=== PATIENT | male | born 1930 | race Caucasian/White ===

== ENCOUNTER → 2016-05-24 | Outpatient (CLI) | payer MEDICARE | END | disposition home or self-care (01) | LOC: LAB.NP 10:20 | PROVIDERS: ATTEND Family Medicine | DX: I10 Essential (primary) hypertension (principal); I25.10 Atherosclerotic heart disease of native coronary artery without angina pectoris; E78.5 Hyperlipidemia, unspecified ==

== ENCOUNTER 2016-07-06 12:39 | Observation (INO) | payer MEDICARE ==
[2016-07-06] MEDS ORDERED: SODIUM CHLORIDE 0.9% 1000ML 1,000 ML IVS ONE (13:02)
--- NOTE | 2016-07-06 13:10 | ED.PDOC ---
History of Present Illness - General Chief Complaint: General Stated Complaint: weakness Time Seen by Provider: 07/06/16 12:50 Source: patient, RN notes reviewed, Vital Signs reviewed Exam Limitations: no limitations - History of Present Illness Initial Comments: Patient comes in with complaints of weakness. Reports while he was working, helping rebuild a house, he suddenly felt weak in his arms. While he denies chest pain, pressure or tightness he does say he felt strange across his whole upper chest and into his arms. + lightheadedness. No CONNORS, Diaphoresis, Visual changes, SOB, Nausea, Abd. pain or lower extremity weakness. Timing/Duration: 1/2 hour Severity: mild Improving Factors: nothing Worsening Factors: nothing Associated Symptoms: weakness Allergies/Adverse Reactions: Allergies NO KNOWN ALLERGY Allergy (Verified 07/27/15 11:13) Home Medications: Ambulatory Orders Simvastatin 20 mg PO HS #0 02/06/13 Tamsulosin [Flomax] 0.4 mg PO DAILY #0 02/06/13 Metoprolol Succinate [Toprol Xl] 100 mg PO DAILY 01/03/15 Nitroglycerin [Nitrostat] 0.4 mg SL Q5M PRN 07/27/15 Omeprazole 20 mg PO DAILY 07/27/15 Warfarin Sodium 2.5 mg PO DAILY 07/27/15 Amlodipine Besylate [Norvasc] 2.5 mg PO BEDTIME 08/31/15 Isosorbide Mononitrate [Imdur] 30 mg PO DAILY 08/31/15 Mometasone Furoate (Nasal) [Nasonex] 50 mcg NA DAILY 08/31/15 Multiple Vitamins W/ Minerals [Multivitamin Adults] 1 tab PO DAILY 08/31/15 Aspirin [Aspirin Adult Low Dose] 81 mg PO DAILY 09/02/15 Review of Systems - Review of Systems Constitutional: States: weakness. Denies: chills, diaphoresis, fever, malaise EENTM: States: no symptoms reported Respiratory: States: no symptoms reported. Denies: cough, short of breath Cardiology: States: see HPI. Denies: chest pain, palpitations, syncope Gastrointestinal/Abdominal: States: no symptoms reported. Denies: abdominal pain, nausea, vomiting Genitourinary: States: no symptoms reported Musculoskeletal: States: no symptoms reported Skin: States: no symptoms reported Neurological: States: see HPI, weakness - Bilateral arms. 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) Hx of HIV: No Hx Hepatitis C: No Hx MRSA: No Surgical History: other - Vaccination History Hx Tetanus, Diphtheria Vaccination: No Hx Influenza Vaccination: Yes Hx Pneumococcal Vaccination: Yes - Social History Hx Tobacco Use: No Hx Alcohol Use: No Hx Substance Use: No Hx Substance Use Treatment: No Hx Depression: No Hx Physical Abuse: No Hx Emotional Abuse: No Hx Suspected Abuse: No - Female History Patient : No Family Medical History - Family History Mother Family History: Unknown Living Status: Cause of : stroke Hx Family Asthma: No Hx Family Congestive Heart Failure: No Hx Family Hypertension: No Hx Family Stroke: Yes Hx Cardiac Disease: No Hx Family Diabetes: No Hx Family Cancer: No Physical Exam - Physical Exam General Appearance: Alert, Comfortable, No apparent distress, Well Developed, Well Groomed, Well Hydrated, Well Nourished Eye Exam: bilateral normal Ears, Nose, Throat: hearing grossly normal, normal ENT inspection Neck: non-tender, full range of motion, supple, normal inspection Respiratory: chest non-tender, lungs clear, normal breath sounds, no respiratory distress, no accessory muscle use Cardiovascular/Chest: normal peripheral pulses, regular rate, rhythm, no edema, no gallop, no JVD, no murmur Peripheral Pulses: posterior tibialis,right: 2+, posterior tibialis,left: 2+ Gastrointestinal/Abdominal: normal bowel sounds, non tender, soft, no organomegaly, no pulsatile mass Extremity: normal range of motion, non-tender, normal inspection, no pedal edema , no calf tenderness Neurologic: vice president of academic affairs II-XII nml as tested, no motor/sensory deficits, alert, normal mood/affect, oriented x 3 Skin Exam: normal color, warm/dry Lymphatic: no adenopathy Comments: Vital Signs - 24 hr 07/06/16 07/06/16 07/06/16 12:45 13:20 14:05 Temperature 96.0 F L Pulse Rate [ 65 65 63 LEFT ARM] Respiratory 16 16 16 Rate Blood Pressure 135/68 114/79 112/69 [left brachial] O2 Sat by Pulse 94 L 96 97 Oximetry 07/06/16 07/06/16 14:50 15:42 Temperature Pulse Rate [ 80 68 LEFT ARM] Respiratory 16 16 Rate Blood Pressure 130/72 119/72 [left brachial] O2 Sat by Pulse 96 95 Oximetry Progress - Progress Progress: 07/06/16 16:20 CK-MB elevated X2 with normal troponin. Will admit for cardiac rule out. Discussed with patient and with Darrin hospitalist. - Results/Orders Results/Orders: Laboratory Tests 07/06/16 07/06/16 13:10 15:19 WBC 5.3 RBC 4.45 L Hgb 14.3 Hct 43.3 MCV 97.3 H MCH 32.1 H MCHC 33.0 RDW 14.3 Plt Count 98 L MPV 8.1 Absolute Neuts (auto) 3.30 Absolute Lymphs (auto) 1.40 Absolute Monos (auto) 0.50 Absolute Eos (auto) 0.10 Absolute Basos (auto) 0.00 Neutrophils % 61.1 Lymphocytes % 26.2 Monocytes % 10.0 H Eosinophils % 1.9 Basophils % 0.8 PT 20.5 H* INR 1.820 PTT (SP) 38.2 H D-Dimer, Quantitative < 200 Sodium 137 Potassium 3.7 Chloride 105 Carbon Dioxide 27 Anion Gap 8.7 L BUN 23 H Creatinine 1.30 BUN/Creatinine Ratio 17.7 Random Glucose 81 Serum Osmolality 276.5 Calcium 10.0 Total Bilirubin 1.4 H AST 41 ALT 22 Alkaline Phosphatase 46 Creatine Kinase 175 H 169 CK-MB (CK-2) 8.0 H* 7.6 H* CK-MB (CK-2) % 4.57 H 4.50 H Troponin I < 0.02 < 0.02 Serum Total Protein 6.2 L Albumin 3.6 Globulin 2.6 Albumin/Globulin Ratio 1.4 - EKG/XRAY/CT EKG: nonspecific ST T wave Chg, Changed from - 08/08/15 - Leads V5-6 QRS waves are changed Comments: Electronic ventricular pacemaker @ 61 bpm XRAY: chest - normal Departure - Departure Clinical Impression: Atypical chest pain, Weakness, Elevated CK-MB level, Abnormal EKG Time of Disposition: 16:20 Disposition: Admit Patient Condition: Fair Departure Forms: ED Discharge - Pt. Copy, Patient Portal Self Enrollment Home Medications: Ambulatory Orders Simvastatin 20 mg PO HS #0 02/06/13 Tamsulosin [Flomax] 0.4 mg PO DAILY #0 02/06/13 Metoprolol Succinate [Toprol Xl] 100 mg PO DAILY 01/03/15 Nitroglycerin [Nitrostat] 0.4 mg SL Q5M PRN 07/27/15 Omeprazole 20 mg PO DAILY 07/27/15 Warfarin Sodium 2.5 mg PO DAILY 07/27/15 Amlodipine Besylate [Norvasc] 2.5 mg PO BEDTIME 08/31/15 Isosorbide Mononitrate [Imdur] 30 mg PO DAILY 08/31/15 Mometasone Furoate (Nasal) [Nasonex] 50 mcg NA DAILY 08/31/15 Multiple Vitamins W/ Minerals [Multivitamin Adults] 1 tab PO DAILY 08/31/15 Aspirin [Aspirin Adult Low Dose] 81 mg PO DAILY 09/02/15 Decision To Admit - Decistion To Admit Decision to Admit Reason: Admit from ER - Elevated CK-MB - cardiac rule out
--- NOTE | 2016-07-06 14:04 | RAD ---
EXAM DESCRIPTION: Chest,1 View CLINICAL HISTORY: 86 years Male, weakness/chest discomfort COMPARISON: August 08, 2015 TECHNIQUE: AP portable chest. FINDINGS: The lungs are clear. There is no infiltrate or effusion. The heart is normal size. Bipolar pacer in place unchanged. IMPRESSION: Normal. Electronically signed by: Kirit Rdz MD 07/06/2016 2:03 PM CDT
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
[2016-07-06] MEDS ORDERED: SODIUM CHLORIDE 0.9% (FLUSH) 10 ML SYG IV PRN (17:34)
[2016-07-06] MEDS ORDERED: ACETAMINOPHEN 325 MG TAB PO PRN (17:34)
[2016-07-06] MEDS ORDERED: MORPHINE SULFATE INJ 10 MG/ML VIAL IV PRN (17:34)
[2016-07-06] MEDS ORDERED: NITROGLYCERIN 0.4 MG 25 EA TAB SL PRN (17:34)
[2016-07-06] MEDS ORDERED: IV SET AND CAP CHANGE INJ INJ SCH (18:00)
--- NOTE | 2016-07-06 19:38 | PCM.CORE ---
Physician DVT/VTE - Nurse DVT Assessment & Total Each Risk Factor Represents 3 Points: Age over 75 years, Medical PT with Hx of PA, CHF, Severe infection/sepsis DVT Assessment Score: 6 - 5 or more Very High Risk Treatments: Early Ambulation *, Sequential Compression Device Pharmacological: Enoxaparin 40mg SQ Daily
[2016-07-06] MEDS ORDERED: traMADol HCL 50 MG TAB PO PRN (20:57)
[2016-07-06] MEDS ORDERED: TAMSULOSIN 0.4 MG CAP PO SCH (21:00)
[2016-07-06] MEDS ORDERED: NON-FORMULARY MEDICATION 1 EA MIS (Amlodipine Besylate [Norvasc] 2.5 MG) PO SCH (21:00)
[2016-07-06] MEDS ORDERED: OMEPRAZOLE CAP 20 MG CAP PO SCH (21:00)
[2016-07-06] MEDS ORDERED: WARFARIN SODIUM 2 MG TAB PO SCH (21:00)
[2016-07-06] MEDS ORDERED: SIMVASTATIN 20 MG TAB PO SCH (21:00)
[2016-07-06] MEDS ORDERED: amLODIPine BESYLATE 5 MG TAB ONE (21:20)
[2016-07-06] MEDS ORDERED: WARFARIN SODIUM 2.5 MG TAB ONE (21:20)
[2016-07-06] MEDS: SODIUM CHLORIDE 0.9% (FLUSH) 10 ML SYG IV SCH (21:23)
[2016-07-06] MEDS: KCL 30MEQ/D5 1/2NS 1,000 ML IVS PRN (21:23)
[2016-07-07] MEDS: KCL 30MEQ/D5 1/2NS 1,000 ML IVS PRN (06:08)
[2016-07-07] MEDS ORDERED: MELOXICAM 7.5 MG TAB ONE (07:10)
[2016-07-07] MEDS ORDERED: METOPROLOL SUCCINATE XL 50 MG TAB ONE (07:10)
[2016-07-07] MEDS ORDERED: CELECOXIB 100 MG CAP ONE (07:10)
[2016-07-07] MEDS ORDERED: amLODIPine BESYLATE 5 MG TAB ONE (07:11)
[2016-07-07] MEDS ORDERED: ISOSORBIDE MONONITRATE (IMDUR) 30 MG TAB ONE (07:11)
[2016-07-07] MEDS ORDERED: MELOXICAM 7.5 MG TAB PO SCH (09:00)
[2016-07-07] MEDS ORDERED: METOPROLOL SUCCINATE XL 50 MG TAB PO SCH (09:00)
[2016-07-07] MEDS ORDERED: ISOSORBIDE MONONITRATE (IMDUR) 30 MG TAB PO SCH (09:00)
[2016-07-07] MEDS ORDERED: CELECOXIB 100 MG CAP PO SCH (09:00)
[2016-07-07] MEDS ORDERED: ASPIRIN EC 81 MG TAB PO SCH (09:00)
[2016-07-07] MEDS: SODIUM CHLORIDE 0.9% (FLUSH) 10 ML SYG IV SCH (09:30)
[2016-07-07 10:29] VITALS: BP 115/74; TEMP 98.5; O2SAT 95
[2016-07-07] MEDS ORDERED: TETANUS,DIPHTHERIA,PERTUSSIS 1 EA SYG IM ONE (13:05)
[2016-07-07] MEDS ORDERED: amLODIPine BESYLATE 5 MG TAB PO SCH (21:00)
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
== END 2016-07-07 13:45 | disposition home health service (06) ==
LOC: ER 12:39 → MS 17:29
PROVIDERS: ADMIT Nurse Practitioner Family; ATTEND Nurse Practitioner Family
DX: R07.89 Other chest pain (principal); M62.81 Muscle weakness (generalized); E86.0 Dehydration; I48.91 Unspecified atrial fibrillation; I25.10 Atherosclerotic heart disease of native coronary artery without angina pectoris; D69.6 Thrombocytopenia, unspecified; R42 Dizziness and giddiness; R94.31 Abnormal electrocardiogram [ECG] [EKG]; I25.2 Old myocardial infarction; E78.00 Pure hypercholesterolemia, unspecified; Z95.0 Presence of cardiac pacemaker; Z95.5 Presence of coronary angioplasty implant and graft; Z23 Encounter for immunization; Z79.01 Long term (current) use of anticoagulants; Z79.82 Long term (current) use of aspirin; Z79.899 Other long term (current) drug therapy; Z87.19 Personal history of other diseases of the digestive system; Z87.442 Personal history of urinary calculi; Z85.828 Personal history of other malignant neoplasm of skin; Z87.891 Personal history of nicotine dependence; Z82.3 Family history of stroke
CPT/HCPCS: 36415 ×3; 71010; 80048; 80053; 80061; 81001; 82550 ×3; 82553 ×3; 84484 ×3; 85025 ×2; 85379; 85610; 85730; 87086; 87088; 87186; 93005 ×2; 94760 ×3; 96360; 99284; G0008; G0378; J7030

== ENCOUNTER → 2016-09-20 | Outpatient (CLI) | payer MEDICARE | END | disposition home or self-care (01) | LOC: YCHH 09:08 | PROVIDERS: ATTEND Family Medicine | DX: N39.0 Urinary tract infection, site not specified (principal); N40.1 Benign prostatic hyperplasia with lower urinary tract symptoms ==

== ENCOUNTER 2016-10-14 08:14 | Emergency (ER) | payer MEDICARE ==
[2016-10-14 08:19] VITALS: TEMP 98.2
[2016-10-14] MEDS ORDERED: ASPIRIN (CHEWABLE) 81 MG TAB PO ONE (08:30)
--- NOTE | 2016-10-14 08:43 | ED.PDOC ---
History of Present Illness - General Chief Complaint: Chest Pain/CA Stated Complaint: Episodic Chest Discomfort Time Seen by Provider: 10/14/16 08:31 Source: patient Exam Limitations: no limitations - History of Present Illness Initial Comments: Patient presents with one week history of intermittent chest pain. Pain is like a "thump" and occurs just to the left of the sternum. It only lasts a few seconds. It is not associated with other symptoms and does not worsen with exertion. He has had these before but has just noticed them increasing this week. He takes nitroglycerin when they occur. Has history of a "heart attack" . He is not sure exactly when his prior MIs were but he does remember getting a pacemaker in the s. Stopped smoking 51 years ago. No history of diabetes. No bipedal edema. No other complaints. Timing/Duration: momentarily, intermittent Severity: mild Improving Factors: nothing Worsening Factors: nothing Associated Symptoms: denies symptoms Allergies/Adverse Reactions: Allergies NO KNOWN ALLERGY Allergy (Verified 10/14/16 08:25) Home Medications: Ambulatory Orders Nitroglycerin [Nitrostat] 0.4 mg SL [id number] PRN 07/27/15 Omeprazole 20 mg PO BEDTIME 07/27/15 Warfarin Sodium 2.5 mg PO BEDTIME 07/27/15 Amlodipine Besylate [Norvasc] 2.5 mg PO BEDTIME 08/31/15 Isosorbide Mononitrate [Imdur] 30 mg PO DAILY 08/31/15 Aspirin [Aspirin EC] 81 mg PO DAILY 07/06/16 Celecoxib 200 mg PO DAILY 07/06/16 Meloxicam 15 mg PO DAILY 07/06/16 Metoprolol Succinate [Metoprolol Succinate ER] 50 mg PO DAILY 07/06/16 Simvastatin 20 mg PO BEDTIME 07/06/16 Tamsulosin [Flomax] 0.4 mg PO BEDTIME 07/06/16 Tramadol HCl 50 mg PO Q4H PRN 07/06/16 Mupirocin 2 % Oint [Bactroban Oint] 15 gm TOP QID #1 tube 07/07/16 Nitroglycerin 0.4 mg Tab [Nitrostat] 1 ea SL Q5MIN PRN #1 bttl 07/07/16 Sulfamethoxazole-Trimethoprim [Bactrim Ds 800-160 mg] 1 tab PO BID #20 tab 07/07 Amoxicillin 875 mg PO BID #20 tab 07/10/16 Review of Systems - Review of Systems Constitutional: States: no symptoms reported EENTM: States: no symptoms reported Respiratory: States: no symptoms reported Cardiology: States: see HPI Gastrointestinal/Abdominal: States: no symptoms reported Genitourinary: States: no symptoms reported Musculoskeletal: States: no symptoms reported Skin: States: no symptoms reported Neurological: States: no symptoms reported Endocrine: States: no symptoms reported Hematologic/Lymphatic: States: no symptoms reported Past Medical History (General) - Patient Medical History Hx Seizures: No Hx Stroke: No Hx Dementia: No Hx Asthma: No Hx of COPD: No Hx Cardiac Disorders: Yes - CA's, Atrial Fib Hx Congestive Heart Failure: No Hx Pacemaker: Yes Hx Hypertension: Yes Hx Thyroid Disease: No Hx Diabetes: No Hx Gastroesophageal Reflux: No Hx Renal Disease: - Hx kidney stones 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) Hx of HIV: No Hx Hepatitis C: No Hx MRSA: No Surgical History: colectomy, pacemaker - Vaccination History Hx Tetanus, Diphtheria Vaccination: No Hx Influenza Vaccination: Yes - 2016 Hx Pneumococcal Vaccination: Yes - Social History Hx Tobacco Use: Yes - Quit 1966 Hx Alcohol Use: No Hx Substance Use: No Hx Substance Use Treatment: No Hx Depression: No Hx Physical Abuse: No Hx Emotional Abuse: No Hx Suspected Abuse: No - Female History Patient : No Family Medical History - Family History Mother Family History: Unknown Living Status: Cause of : stroke Hx Family Asthma: No Hx Family Congestive Heart Failure: No Hx Family Hypertension: No Hx Family Stroke: Yes Hx Cardiac Disease: No Hx Family Diabetes: No Hx Family Cancer: No Physical Exam - Physical Exam General Appearance: Alert Respiratory: lungs clear Cardiovascular/Chest: normal peripheral pulses, regular rate, rhythm Gastrointestinal/Abdominal: normal bowel sounds, non tender, soft Extremity: normal inspection, no pedal edema Skin Exam: normal color Progress - Progress Progress: 10/14/16 08:44 EKG read by me showed electronic ventricular pacemaker. No ST cahnges nor T wave inversions. No LBBB. Patient received ASA 324 mg po x one. 10/14/16 09:50 Troponin negative. Patient continued to have intermittent pain. Was transferred to [facility] for unstable angina. Laboratory Tests 10/14/16 10/14/16 10/14/16 08:51 08:51 08:51 WBC 5.4 RBC 4.97 Hgb 16.0 Hct 48.5 MCV 97.7 H MCH 32.2 H MCHC 32.9 L RDW 13.5 Plt Count 109 L MPV 8.7 Absolute Neuts (auto) 3.30 Absolute Lymphs (auto) 1.40 Absolute Monos (auto) 0.50 Absolute Eos (auto) 0.10 Absolute Basos (auto) 0.00 Neutrophils % 61.2 Lymphocytes % 25.9 Monocytes % 9.5 H Eosinophils % 2.6 Basophils % 0.8 PT 20.8 H* INR 1.850 PTT (SP) 38.5 H Sodium 139 Potassium 4.5 Chloride 105 Carbon Dioxide 26 Anion Gap 12.5 BUN 17 Creatinine 1.23 BUN/Creatinine Ratio 13.8 Random Glucose 142 H Serum Osmolality 281.5 Calcium 10.4 H Total Bilirubin 1.6 H AST 33 ALT 18 Alkaline Phosphatase 47 Creatine Kinase 77 CK-MB (CK-2) 3.2 CK-MB (CK-2) % Not Reportable Troponin I < 0.02 B-Natriuretic Peptide 88.7 Serum Total Protein 7.1 Albumin 4.1 Globulin 3.0 Albumin/Globulin Ratio 1.4 Departure - Departure Clinical Impression: Unstable angina Disposition: Transfer to Hospital Condition: Good Departure Forms: ED Discharge - Pt. Copy, Patient Portal Self Enrollment Diet: other - NPO Referrals: Krzysztof Burns MD [Primary Care Provider] - 1-2 Weeks Home Medications: Ambulatory Orders Nitroglycerin [Nitrostat] 0.4 mg SL [id number] PRN 07/27/15 Omeprazole 20 mg PO BEDTIME 07/27/15 Warfarin Sodium 2.5 mg PO BEDTIME 07/27/15 Amlodipine Besylate [Norvasc] 2.5 mg PO BEDTIME 08/31/15 Isosorbide Mononitrate [Imdur] 30 mg PO DAILY 08/31/15 Aspirin [Aspirin EC] 81 mg PO DAILY 07/06/16 Celecoxib 200 mg PO DAILY 07/06/16 Meloxicam 15 mg PO DAILY 07/06/16 Metoprolol Succinate [Metoprolol Succinate ER] 50 mg PO DAILY 07/06/16 Simvastatin 20 mg PO BEDTIME 07/06/16 Tamsulosin [Flomax] 0.4 mg PO BEDTIME 03/30/17 Tramadol HCl 50 mg PO Q4H PRN 07/06/16 Mupirocin 2 % Oint [Bactroban Oint] 15 gm TOP QID #1 tube 07/07/16 Nitroglycerin 0.4 mg Tab [Nitrostat] 1 ea SL Q5MIN PRN #1 bttl 07/07/16 Sulfamethoxazole-Trimethoprim [Bactrim Ds 800-160 mg] 1 tab PO BID #20 tab 07/07 Amoxicillin 875 mg PO BID #20 tab 07/10/16
--- NOTE | 2016-10-14 08:53 | RAD ---
PROCEDURE: XR CHEST 1 VIEW HISTORY: chest pain COMPARISON: 07/06/2016 TECHNIQUE: Single projection of the chest was done. FINDINGS: There is dual-chamber left-sided pacemaker . There are no discrete airspace infiltrates, pneumothoraces or pleural effusions. The pulmonary vascularity is normal. The cardiomediastinal silhouette is unremarkable. IMPRESSION: There is no acute pleural-parenchymal process seen in the imaged lung paige. Location of Interpretation: [facility] Electronically signed by: Handy Bell MD 10/14/2016 8:52 AM CDT Workstation: [id number]
[2016-10-14 10:07] VITALS: BP 125/74; O2SAT 97
== END 2016-10-14 10:28 | disposition short-term general hospital (02) ==
LOC: ER 08:14
DX: I20.0 Unstable angina (principal); I25.2 Old myocardial infarction; Z95.0 Presence of cardiac pacemaker; I48.91 Unspecified atrial fibrillation; I10 Essential (primary) hypertension; Z79.82 Long term (current) use of aspirin; Z79.899 Other long term (current) drug therapy; Z85.828 Personal history of other malignant neoplasm of skin; Z87.891 Personal history of nicotine dependence

== ENCOUNTER → 2016-10-16 | Outpatient (CLI) | payer MEDICARE ==
--- NOTE | 2016-10-16 09:18 | US ---
EXAM DESCRIPTION: Renal CLINICAL HISTORY: 86 years, Male, CYST COMPARISON: CT scan January 2016 FINDINGS: Right kidney 9.6 cm. Left kidney 10.1 cm. 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 IMPRESSION: Septated upper pole left renal cyst probably unchanged compared to last year's CT scan alignment for difference in technique. Remainder evaluation kidneys unremarkable Electronically signed by: Juan J Haddad MD 10/16/2016 9:17 AM CDT
== END | disposition home or self-care (01) ==
LOC: US 08:02
PROVIDERS: ATTEND Urology
DX: N28.1 Cyst of kidney, acquired (principal)

== ENCOUNTER 2016-10-20 21:20 | Emergency (ER) | payer MEDICARE ==
--- NOTE | 2016-10-20 22:41 | ED.PDOC ---
History of Present Illness - General Chief Complaint: General Stated Complaint: left cheek pain Time Seen by Provider: 10/20/16 22:36 Source: patient Exam Limitations: no limitations - History of Present Illness Initial Comments: Patient presents complaining of left cheek pain. He says it comes and goes. It is sharp in nature. It only lasts about 4 seconds when it comes. He has had a history of toothache on that side but said he recently saw his dentist and was told that nothing was to be done at this time. Patient says he was told to see a doctor in [place] about the cheek pain but he can't remember who it was so he wants it fixed tonight. I informed him that I would do an exam and problem would just be able to control the pain until he can see either a dentist or neurologist. Patient became impatient because he had to wait behind more severely ill patients before getting a full workup so he left [place]. Allergies/Adverse Reactions: Allergies NO KNOWN ALLERGY Allergy (Verified 10/14/16 08:25) Home Medications: Ambulatory Orders Omeprazole 20 mg PO BEDTIME 07/27/15 Warfarin Sodium 2.5 mg PO BEDTIME 07/27/15 Amlodipine Besylate [Norvasc] 2.5 mg PO BEDTIME 08/31/15 Isosorbide Mononitrate [Imdur] 30 mg PO DAILY 08/31/15 Aspirin [Aspirin EC] 81 mg PO DAILY 07/06/16 Celecoxib 200 mg PO DAILY 07/06/16 Meloxicam 15 mg PO DAILY 07/06/16 Metoprolol Succinate [Metoprolol Succinate ER] 50 mg PO DAILY 07/06/16 Simvastatin 20 mg PO BEDTIME 07/06/16 Tamsulosin [Flomax] 0.4 mg PO BEDTIME 07/06/16 Tramadol HCl 50 mg PO Q4H PRN 07/06/16 Nitroglycerin 0.4 mg Tab [Nitrostat] 1 ea SL Q5MIN PRN #1 bttl 07/07/16 Past Medical History (General) - Patient Medical History Hx Seizures: No Hx Stroke: No Hx Dementia: No Hx Asthma: No Hx of COPD: No Hx Cardiac Disorders: Yes - IL's, Atrial Fib Hx Congestive Heart Failure: No Hx Pacemaker: Yes Hx Hypertension: Yes Hx Thyroid Disease: No Hx Diabetes: No Hx Gastroesophageal Reflux: No Hx Renal Disease: - Hx kidney stones 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) Hx of HIV: No Hx Hepatitis C: No Hx MRSA: No - Vaccination History Hx Tetanus, Diphtheria Vaccination: No Hx Influenza Vaccination: Yes - 2015 Hx Pneumococcal Vaccination: Yes - Social History Hx Tobacco Use: Yes - Quit 1965 Hx Alcohol Use: No Hx Substance Use: No Hx Substance Use Treatment: No Hx Depression: No Hx Physical Abuse: No Hx Emotional Abuse: No Hx Suspected Abuse: No - Female History Patient : No Family Medical History - Family History Mother Family History: Unknown Living Status: Cause of : stroke Hx Family Asthma: No Hx Family Congestive Heart Failure: No Hx Family Hypertension: No Hx Family Stroke: Yes Hx Cardiac Disease: No Hx Family Diabetes: No Hx Family Cancer: No Departure - Departure Clinical Impression: Pain of cheek Disposition: Left Against Medical Advice Referrals: Krzysztof Burns MD [Primary Care Provider] - 1-2 Weeks Home Medications: Ambulatory Orders Omeprazole 20 mg PO BEDTIME 07/27/15 Warfarin Sodium 2.5 mg PO BEDTIME 07/27/15 Amlodipine Besylate [Norvasc] 2.5 mg PO BEDTIME 08/31/15 Isosorbide Mononitrate [Imdur] 30 mg PO DAILY 08/31/15 Aspirin [Aspirin EC] 81 mg PO DAILY 07/06/16 Celecoxib 200 mg PO DAILY 07/06/16 Meloxicam 15 mg PO DAILY 07/06/16 Metoprolol Succinate [Metoprolol Succinate ER] 50 mg PO DAILY 07/06/16 Simvastatin 20 mg PO BEDTIME 07/06/16 Tamsulosin [Flomax] 0.4 mg PO BEDTIME 07/06/16 Tramadol HCl 50 mg PO Q4H PRN 07/06/16 Nitroglycerin 0.4 mg Tab [Nitrostat] 1 ea SL Q5MIN PRN #1 bttl 07/07/16
[2016-10-21] MEDS ORDERED: ONDANSETRON ODT (ER DISP) 8 MG TAB PO ONE (01:06)
[2016-10-21] MEDS ORDERED: ONDANSETRON ODT 8 MG TAB SL ONE (01:06)
== END 2016-10-20 22:55 | disposition left against medical advice (07) ==
LOC: ER 21:20
DX: R51 Headache (principal); I25.2 Old myocardial infarction; I48.91 Unspecified atrial fibrillation; I10 Essential (primary) hypertension; Z95.0 Presence of cardiac pacemaker; Z87.442 Personal history of urinary calculi; Z85.828 Personal history of other malignant neoplasm of skin; Z87.891 Personal history of nicotine dependence; Z79.01 Long term (current) use of anticoagulants; Z79.899 Other long term (current) drug therapy

== ENCOUNTER 2016-10-25 08:10 | Emergency (ER) | payer MEDICARE ==
[2016-10-25] MEDS ORDERED: methylPREDNISolone SODIUM SUC 125 MG/2 ML VIAL IM ONE (08:35)
[2016-10-25] MEDS ORDERED: valACYclovir 500 MG TAB PO ONE (08:36)
[2016-10-25 08:39] VITALS: TEMP 97.8; O2SAT 96
--- NOTE | 2016-10-25 08:39 | ED.PDOC ---
History of Present Illness - General Chief Complaint: Skin/Abrasion/Tear Stated Complaint: Painful rash L forehead & scalp Time Seen by Provider: 10/25/16 08:13 Source: patient, RN notes reviewed, Vital Signs reviewed Exam Limitations: no limitations - History of Present Illness Initial Comments: Patient reports a painful rash with blisters on his L forehead and scalp that started ~2 days ago. He says it all started with sharp pains in his L chest that slowly moved up to his L gums and cheek and finally to his L forehead. This occurred over several days. He has here 5 days ago with c/o sharp L cheek pain but after EKG left w/o being seen. EKG on 10/20/16 & 10/14/16 showed electronic pacemaker w/o acute changes. No c/o of chest pain for the past several days. Timing/Duration: constant - starting 2 days ago Severity: moderate Location: scalp, face Improving Factors: nothing Worsening Factors: nothing Associated Symptoms: blisters, rash Allergies/Adverse Reactions: Allergies NO KNOWN ALLERGY Allergy (Verified 10/14/16 08:25) Home Medications: Ambulatory Orders Omeprazole 20 mg PO BEDTIME 07/27/15 Warfarin Sodium 2.5 mg PO BEDTIME 07/27/15 Amlodipine Besylate [Norvasc] 2.5 mg PO BEDTIME 08/31/15 Isosorbide Mononitrate [Imdur] 30 mg PO DAILY 08/31/15 Aspirin [Aspirin EC] 81 mg PO DAILY 07/06/16 Celecoxib 200 mg PO DAILY 07/06/16 Meloxicam 15 mg PO DAILY 07/06/16 Metoprolol Succinate [Metoprolol Succinate ER] 50 mg PO DAILY 07/06/16 Simvastatin 20 mg PO BEDTIME 07/06/16 Tamsulosin [Flomax] 0.4 mg PO BEDTIME 07/06/16 Tramadol HCl 50 mg PO Q4H PRN 07/06/16 Nitroglycerin 0.4 mg Tab [Nitrostat] 1 ea SL Q5MIN PRN #1 bttl 07/07/16 Valacyclovir HCl [Valtrex] 1 gm PO BID #14 tab 10/25/16 methylPREDNISolone TAB [Medrol Tab] 4 mg PO DAILY #21 tab 10/25/16 Review of Systems - Review of Systems Constitutional: States: no symptoms reported EENTM: States: see HPI. Denies: eye pain, blurred vision, double vision, ear pain, nose pain, throat pain, mouth pain Respiratory: States: no symptoms reported Cardiology: States: chest pain - sharp and intermittent for ~ 1 week or longer Gastrointestinal/Abdominal: States: no symptoms reported Musculoskeletal: States: no symptoms reported Skin: States: see HPI Neurological: States: no symptoms reported All other Systems: No Change from Baseline Past Medical History (General) - Patient Medical History Hx Seizures: No Hx Stroke: No Hx Dementia: No Hx Asthma: No Hx of COPD: No Hx Cardiac Disorders: Yes - SD's, Atrial Fib Hx Congestive Heart Failure: No Hx Pacemaker: Yes Hx Hypertension: Yes Hx Thyroid Disease: No Hx Diabetes: No Hx Gastroesophageal Reflux: No Hx Renal Disease: - Hx kidney stones 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) Hx of HIV: No Hx Hepatitis C: No Hx MRSA: No - Vaccination History Hx Tetanus, Diphtheria Vaccination: No Hx Influenza Vaccination: Yes - 2016 Hx Pneumococcal Vaccination: Yes - Social History Hx Tobacco Use: Yes - Quit 1966 Hx Alcohol Use: No Hx Substance Use: No Hx Substance Use Treatment: No Hx Depression: No Hx Physical Abuse: No Hx Emotional Abuse: No Hx Suspected Abuse: No - Female History Patient : No Family Medical History - Family History Mother Family History: Unknown Living Status: Cause of : stroke Hx Family Asthma: No Hx Family Congestive Heart Failure: No Hx Family Hypertension: No Hx Family Stroke: Yes Hx Cardiac Disease: No Hx Family Diabetes: No Hx Family Cancer: No Physical Exam - Physical Exam General Appearance: Alert, Comfortable, No apparent distress, Well Developed, Well Groomed, Well Hydrated, Well Nourished Eyes, Ears, Nose, Throat Exam: PERRL/EOMI, normal ENT inspection Neck: non-tender, full range of motion, supple, normal inspection Cardiovascular/Chest: regular rate, rhythm, no gallop, no JVD, no murmur Respiratory: chest non-tender, lungs clear, normal breath sounds, no respiratory distress, no accessory muscle use Neurologic: no motor/sensory deficits, alert, normal mood/affect, oriented x 3 Skin Exam: warm/dry, normal color Skin Problem Location: face - L forehead, scalp - Left top of scalp extending from forehead backwards Skin Character: erythema, rash, swelling, tenderness, vesicular, other - L upper eyelid to scalp is erythematous, swollen and tender with vesicular rash on forehead & scalp Comments: Vital Signs 10/25/16 08:12 Temperature 97.8 F Pulse Rate [ 77 left brachial] Respiratory 20 Rate Blood Pressure 147/88 [left brachial] O2 Sat by Pulse 96 Oximetry Progress - Progress Progress: 10/25/16 08:45 Discussed shingles with patient. Will give Solu-medrol 125mg IM and Valtrex 1gm po with Rx for Valtrex. Patient agrees with plan. Departure - Departure Clinical Impression: Shingles Qualifiers: Herpes zoster complications: without complications Qualified Code(s): B02.9 - Zoster without complications Time of Disposition: :19 Disposition: Discharge to Home or Self Care Condition: Fair Departure Forms: ED Discharge - Pt. Copy, Patient Portal Self Enrollment Instructions: DI for Shingles Diet: resume usual diet Activity: increase activity as tolerated Referrals: Krzysztof Burns MD [Primary Care Provider] - 1-2 Weeks Prescriptions: methylPREDNISolone TAB [Medrol Tab] 4 mg PO DAILY #21 tab Valacyclovir HCl [Valtrex] 1 gm PO BID #14 tab Home Medications: Ambulatory Orders Omeprazole 20 mg PO BEDTIME 07/27/15 Warfarin Sodium 2.5 mg PO BEDTIME 07/27/15 Amlodipine Besylate [Norvasc] 2.5 mg PO BEDTIME 08/31/15 Isosorbide Mononitrate [Imdur] 30 mg PO DAILY 08/31/15 Aspirin [Aspirin EC] 81 mg PO DAILY 07/06/16 Celecoxib 200 mg PO DAILY 07/06/16 Meloxicam 15 mg PO DAILY 07/06/16 Metoprolol Succinate [Metoprolol Succinate ER] 50 mg PO DAILY 07/06/16 Simvastatin 20 mg PO BEDTIME 07/06/16 Tamsulosin [Flomax] 0.4 mg PO BEDTIME 07/06/16 Tramadol HCl 50 mg PO Q4H PRN 07/06/16 Nitroglycerin 0.4 mg Tab [Nitrostat] 1 ea SL Q5MIN PRN #1 bttl 07/07/16 Valacyclovir HCl [Valtrex] 1 gm PO BID #14 tab 10/25/16 methylPREDNISolone TAB [Medrol Tab] 4 mg PO DAILY #21 tab 10/25/16
[2016-10-25 09:09] VITALS: BP 127/61
== END 2016-10-25 09:25 | disposition home or self-care (01) ==
LOC: ER 08:10
DX: B02.9 Zoster without complications (principal); I25.2 Old myocardial infarction; I48.91 Unspecified atrial fibrillation; I10 Essential (primary) hypertension; Z95.0 Presence of cardiac pacemaker; Z87.442 Personal history of urinary calculi; Z85.828 Personal history of other malignant neoplasm of skin; Z79.82 Long term (current) use of aspirin; Z79.899 Other long term (current) drug therapy; Z87.891 Personal history of nicotine dependence

== ENCOUNTER 2016-11-17 17:33 | Emergency (ER) | payer MEDICARE, OTHER ==
[2016-11-17 17:45] VITALS: TEMP 98.2
--- NOTE | 2016-11-17 18:44 | RAD ---
EXAM DESCRIPTION: Chest,2 Views CLINICAL HISTORY: 86 years Male chest contusion COMPARISON: 10/14/2016 FINDINGS: The cardiomediastinal silhouette appears unremarkable. No consolidating infiltrates or pleural effusions. No pneumothorax. Lungs are hyperinflated. Degenerative changes in the spine. Pacemaker in stable position. No rib fracture noted. IMPRESSION: No acute abnormality is identified. Electronically signed by: Peri Sim 11/17/2016 6:43 PM CDT
--- NOTE | 2016-11-17 18:46 | RAD ---
EXAM DESCRIPTION: Bilateral Ribs CLINICAL HISTORY: contusion COMPARISON: None. FINDINGS: Multiple views of bilateral ribs were submitted. No discrete rib fracture or destructive rib lesion noted. Subtle areas of lucency are seen in the humeral heads bilaterally and in the scapula which is age-indeterminate may be related to osteopenia. Possibility of metastatic disease or myeloma is not excluded. Multilevel degenerative changes present in the spine. IMPRESSION: No acute rib fracture is noted Subtle lucencies in the scapula and proximal humeri which may be related the patient's age and osteopenia. The possibility of metastatic disease or multiple myeloma not entirely excluded Electronically signed by: Peri Sim 11/17/2016 6:44 PM CDT
--- NOTE | 2016-11-17 18:47 | RAD ---
EXAM DESCRIPTION: Cervical Spine,5 Views CLINICAL HISTORY: 86 years Male pain COMPARISON: 03/06/2016 TECHNIQUE: Five views FINDINGS: There is straightening of the normal lordosis. Narrowing of the disc interspaces throughout the cervical spine with marginal osteophytes and subchondral sclerosis. This appears similar to the previous examination. The odontoid appears intact. Facet arthropathy is present at multiple levels. 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 CT could be obtained to better evaluate if there is continued clinical concern. Multilevel degenerative change Electronically signed by: Peri Sim 11/17/2016 6:46 PM CDT
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
[2016-11-17] MEDS ORDERED: HYDROCOD/APAP 7.5/325 (ER DISP) #3 TAB PO ONE (19:44)
[2016-11-17 19:59] VITALS: BP 117/82; O2SAT 100
== END 2016-11-17 20:00 | disposition home or self-care (01) ==
LOC: ER 17:33
DX: S20.219A Contusion of unspecified front wall of thorax, initial encounter (principal); I48.91 Unspecified atrial fibrillation; I10 Essential (primary) hypertension; I25.2 Old myocardial infarction; Z85.828 Personal history of other malignant neoplasm of skin; Z95.0 Presence of cardiac pacemaker; Z79.82 Long term (current) use of aspirin; Z79.01 Long term (current) use of anticoagulants; Z79.899 Other long term (current) drug therapy; V43.53XA Car driver injured in collision with pick-up truck in traffic accident, initial encounter; Y92.488 Other paved roadways as the place of occurrence of the external cause

== ENCOUNTER → 2016-12-14 | Outpatient (CLI) | payer MEDICARE | END | disposition home or self-care (01) | LOC: NM 15:29 | PROVIDERS: ATTEND Physician Assistant | DX: R93.8 Abnormal findings on diagnostic imaging of other specified body structures (principal) ==

== ENCOUNTER → 2016-12-20 | Outpatient (CLI) | payer MEDICARE | END | disposition home or self-care (01) | LOC: LAB.O 14:51 | PROVIDERS: ATTEND Urology | DX: R31.9 Hematuria, unspecified (principal) ==

== ENCOUNTER 2017-01-13 10:39 | Emergency (ER) | payer MEDICARE ==
[2017-01-13 11:00] VITALS: TEMP 97.4
--- NOTE | 2017-01-13 11:00 | ED.PDOC ---
History of Present Illness - General Chief Complaint: GI Problem Stated Complaint: Black stool this morning Time Seen by Provider: 01/13/17 10:42 Information Source: patient, RN notes reviewed, Vital Signs reviewed Exam Limitations: no limitations - History of Present Illness Initial Comments: Patient came to ER because he had a black stool this morning and that has never happened before. Otherwise he feels well. No abdominal pain, nausea or vomiting. Reports a normal stool yesterday. Abdominal Pain Onset Location: other - No pain Timing/Duration: other - single bowel movement with black stool Improving Factors: nothing Worsening Factors: nothing Associated Symptoms: denies symptoms Review of Systems - Review of Systems Constitutional: States: no symptoms reported Respiratory: States: no symptoms reported Cardiology: States: no symptoms reported Gastrointestinal/Abdominal: States: see HPI. Denies: abdominal pain, constipation, diarrhea, nausea, vomiting Skin: States: no symptoms reported Neurological: States: no symptoms reported Hematologic/Lymphatic: States: see HPI, other - Takes Coumadin daily. 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) Hx of HIV: No Hx Hepatitis C: No Hx MRSA: No - Vaccination History Hx Tetanus, Diphtheria Vaccination: No Hx Influenza Vaccination: Yes Hx Pneumococcal Vaccination: Yes - Social History Hx Tobacco Use: Yes Hx Alcohol Use: No Hx Substance Use: No Hx Substance Use Treatment: No Hx Depression: No Hx Physical Abuse: No Hx Emotional Abuse: No Hx Suspected Abuse: No - Female History Patient : No Family Medical History - Family History Mother Family History: Unknown Living Status: Cause of : stroke Hx Family Asthma: No Hx Family Congestive Heart Failure: No Hx Family Hypertension: No Hx Family Stroke: Yes Hx Cardiac Disease: No Hx Family Diabetes: No Hx Family Cancer: No Physical Exam - Physical Exam General Appearance: Alert, Comfortable, No apparent distress, Well Developed, Well Groomed, Well Hydrated, Well Nourished Neck: non-tender, supple, normal inspection Respiratory: lungs clear, normal breath sounds, no respiratory distress, no accessory muscle use Cardiovascular/Chest: normal peripheral pulses, regular rate, rhythm, no gallop , no murmur Peripheral Pulses: 2+ Gastrointestinal/Abdominal: normal bowel sounds, non tender, soft, no organomegaly, no pulsatile mass Extremity: normal range of motion, normal inspection Neurologic: alert, normal mood/affect, oriented x 3 Skin Exam: normal color, warm/dry Comments: Vital Signs 01/13/17 10:40 Temperature 97.4 F L Pulse Rate [ 73 left brachial] Respiratory 20 Rate Blood Pressure 117/67 [left brachial] O2 Sat by Pulse 97 Oximetry Progress - Progress Progress: 01/13/17 12:24 Stool is guiac +, Blood counts are a little lower than his prior labs and his blood pressure is a little lower than he has been on prior visits. Unclear if he has had a bleed that has stopped or if he is still actively bleeding. Will hydrate with1L NS bolus as he appears mildly dry and plan to recheck H/H 1 hour after bolus finished. If H/H drops will assume there is still active bleeding going on and he will need GI consultation. 01/13/17 15:02 Hgb dropped by 1.5 points which is not to be unexpected after a L NS bolus. His BP came up into 120's. Will d/c home with ER warnings. Advised f/u with Dr. Burns on Sunday If worsening bleeding or black stools continue for more than 2 days see professor of marketing GAYE - Results/Orders Results/Orders: Laboratory Tests 01/13/17 01/13/17 01/13/17 11:00 11:10 11:10 WBC 4.4 L RBC 3.99 L Hgb 13.0 L Hct 38.6 L MCV 96.9 H MCH 32.5 H MCHC 33.6 RDW 13.9 Plt Count 103 L MPV 8.0 Absolute Neuts (auto) 3.10 Absolute Lymphs (auto) 0.80 L Absolute Monos (auto) 0.40 Absolute Eos (auto) 0.00 Absolute Basos (auto) 0.00 Neutrophils % 71.0 Lymphocytes % 18.7 L Monocytes % 8.6 Eosinophils % 0.7 L Basophils % 1.0 Sodium 140 Potassium 4.0 Chloride 107 Carbon Dioxide 28 Anion Gap 9.0 L BUN 23 H Creatinine 0.98 BUN/Creatinine Ratio 23.5 H Random Glucose 116 H Serum Osmolality 284.1 Calcium 10.3 H Total Bilirubin 1.4 H AST 27 ALT 18 Alkaline Phosphatase 37 L Serum Total Protein 5.9 L Albumin 3.6 Globulin 2.3 Albumin/Globulin Ratio 1.6 Stool Occult Blood Positive 01/13/17 14:19 WBC RBC Hgb 11.8 L Hct 34.7 L MCV MCH MCHC RDW Plt Count MPV Absolute Neuts (auto) Absolute Lymphs (auto) Absolute Monos (auto) Absolute Eos (auto) Absolute Basos (auto) Neutrophils % Lymphocytes % Monocytes % Eosinophils % Basophils % Sodium Potassium Chloride Carbon Dioxide Anion Gap BUN Creatinine BUN/Creatinine Ratio Random Glucose Serum Osmolality Calcium Total Bilirubin AST ALT Alkaline Phosphatase Serum Total Protein Albumin Globulin Albumin/Globulin Ratio Stool Occult Blood Departure - Departure Clinical Impression: Gastrointestinal bleed Qualifiers: GI bleed type/associated pathology: unspecified gastrointestinal hemorrhage type Qualified Code(s): K92.2 - Gastrointestinal hemorrhage, unspecified Time of Disposition: 15:06 Disposition: Discharge to Home or Self Care Condition: Good Departure Forms: ED Discharge - Pt. Copy, Patient Portal Self Enrollment Instructions: DI for Gastrointestinal Bleeding Diet: resume usual diet Activity: increase activity as tolerated Referrals: Krzysztof Burns MD [Primary Care Provider] - 1-2 Days Home Medications: Ambulatory Orders Omeprazole 20 mg PO BEDTIME 07/27/15 Warfarin Sodium 2.5 mg PO BEDTIME 07/27/15 Amlodipine Besylate [Norvasc] 2.5 mg PO BEDTIME 08/31/15 Isosorbide Mononitrate [Imdur] 30 mg PO DAILY 08/31/15 Aspirin [Aspirin EC] 81 mg PO DAILY 07/06/16 Celecoxib 200 mg PO DAILY 07/06/16 Meloxicam 15 mg PO DAILY 07/06/16 Metoprolol Succinate [Metoprolol Succinate ER] 50 mg PO DAILY 07/06/16 Simvastatin 20 mg PO BEDTIME 07/06/16 Tamsulosin [Flomax] 0.4 mg PO BEDTIME 07/06/16 Tramadol HCl 50 mg PO Q4H PRN 07/06/16 Nitroglycerin 0.4 mg Tab [Nitrostat] 1 ea SL Q5MIN PRN #1 bttl 07/07/16 Valacyclovir HCl [Valtrex] 1 gm PO BID #14 tab 10/25/16 methylPREDNISolone TAB [Medrol Tab] 4 mg PO DAILY #21 tab 10/25/16 Additional Instructions: If worsening bleeding or black stools continue for more than 2 days see professor of marketing GAYE
[2017-01-13] MEDS ORDERED: SODIUM CHLORIDE 0.9% 1000ML 1,000 ML IVS ONE (12:15)
[2017-01-13 13:19] VITALS: O2SAT 97
[2017-01-13 15:26] VITALS: BP 120/70
== END 2017-01-13 15:31 | disposition home or self-care (01) ==
LOC: ER 10:39
DX: K92.2 Gastrointestinal hemorrhage, unspecified (principal); I25.2 Old myocardial infarction; I48.91 Unspecified atrial fibrillation; I10 Essential (primary) hypertension; Z95.0 Presence of cardiac pacemaker; Z87.891 Personal history of nicotine dependence; Z85.828 Personal history of other malignant neoplasm of skin
CPT/HCPCS: 36415; 80053; 82270; 85014; 85018; 85025; J7030

== ENCOUNTER → 2017-01-15 | Outpatient (CLI) | payer MEDICARE | END | disposition home or self-care (01) | LOC: GMA 11:46 | PROVIDERS: ATTEND Physician Assistant | DX: K62.5 Hemorrhage of anus and rectum (principal) ==

== ENCOUNTER 2017-01-16 13:41 | Emergency (ER) | payer MEDICARE ==
[2017-01-16 14:05] VITALS: O2SAT 99
--- NOTE | 2017-01-16 14:33 | ED.PDOC ---
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 Timing/Duration: other - see hpi Improving Factors: nothing Worsening Factors: nothing Associated Symptoms: denies symptoms Allergies/Adverse Reactions: Allergies NO KNOWN ALLERGY Allergy (Verified 01/16/17 14:05) Home Medications: Ambulatory Orders Omeprazole 20 mg PO BEDTIME 07/27/15 Warfarin Sodium 2.5 mg PO BEDTIME 07/27/15 Amlodipine Besylate [Norvasc] 2.5 mg PO BEDTIME 08/31/15 Isosorbide Mononitrate [Imdur] 30 mg PO DAILY 08/31/15 Aspirin [Aspirin EC] 81 mg PO DAILY 07/06/16 Celecoxib 200 mg PO DAILY 07/06/16 Meloxicam 15 mg PO DAILY 07/06/16 Metoprolol Succinate [Metoprolol Succinate ER] 50 mg PO DAILY 07/06/16 Simvastatin 20 mg PO BEDTIME 07/06/16 Tamsulosin [Flomax] 0.4 mg PO BEDTIME 07/06/16 Tramadol HCl 50 mg PO Q4H PRN 07/06/16 Nitroglycerin 0.4 mg Tab [Nitrostat] 1 ea SL Q5MIN PRN #1 bttl 07/07/16 Valacyclovir HCl [Valtrex] 1 gm PO BID #14 tab 10/25/16 methylPREDNISolone TAB [Medrol Tab] 4 mg PO DAILY #21 tab 10/25/16 Review of Systems - Review of Systems Constitutional: States: no symptoms reported EENTM: States: no symptoms reported Respiratory: States: no symptoms reported Cardiology: States: no symptoms reported Gastrointestinal/Abdominal: States: see HPI Genitourinary: States: no symptoms reported Musculoskeletal: States: no symptoms reported Skin: States: no symptoms reported Neurological: States: no symptoms reported Endocrine: States: no symptoms reported Hematologic/Lymphatic: States: no symptoms reported Past Medical History (General) - Patient Medical History Hx Seizures: No Hx Stroke: No Hx Dementia: No Hx Asthma: No Hx of COPD: No Hx Cardiac Disorders: Yes - VT's, Atrial Fib Hx Congestive Heart Failure: No Hx Pacemaker: Yes Hx Hypertension: Yes Hx Thyroid Disease: No Hx Diabetes: No Hx Gastroesophageal Reflux: No Hx Renal Disease: - Hx kidney stones 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) Hx of HIV: No Hx Hepatitis C: No Hx MRSA: No Surgical History: other - left hemicolectomy-diverticulosis,stent,pacemaker, colonoscopy,egd - Vaccination History Hx Tetanus, Diphtheria Vaccination: No Hx Influenza Vaccination: No Hx Pneumococcal Vaccination: Yes - Social History Hx Tobacco Use: Yes Hx Alcohol Use: No Hx Substance Use: No Hx Substance Use Treatment: No Hx Depression: No Hx Physical Abuse: No Hx Emotional Abuse: No Hx Suspected Abuse: No - Female History Patient : No Family Medical History - Family History Mother Family History: Unknown Living Status: Cause of : stroke Hx Family Asthma: No Hx Family Congestive Heart Failure: No Hx Family Hypertension: No Hx Family Stroke: Yes Hx Cardiac Disease: No Hx Family Diabetes: No Hx Family Cancer: No Physical Exam - Physical Exam General Appearance: Alert, No apparent distress Eye Exam: bilateral normal Ears, Nose, Throat: hearing grossly normal, normal ENT inspection, normal pharynx Neck: non-tender, supple Respiratory: lungs clear, normal breath sounds Cardiovascular/Chest: regular rate, rhythm, no murmur Peripheral Pulses: radial,right: 2+, radial,left: 2+ Gastrointestinal/Abdominal: non tender, soft, no organomegaly Rectal Exam: normal rectal tone, black stool Back Exam: no vertebral tenderness Extremity: no pedal edema, no calf tenderness Neurologic: alert, normal mood/affect, oriented x 3 Skin Exam: normal color, warm/dry, other - no signs of external injury Lymphatic: no adenopathy Progress - Progress Progress: 01/16/17 15:48 Vital Signs - 8 hr 01/16/17 13:55 Temperature 97.8 F Pulse Rate [ 69 pulse ox] Respiratory 20 Rate Blood Pressure 122/76 [Left Arm] O2 Sat by Pulse 99 Oximetry - Results/Orders Results/Orders: Laboratory Tests 01/16/17 01/16/17 01/16/17 14:30 14:30 14:30 WBC 5.7 RBC 3.51 L Hgb 11.5 L Hct 34.2 L MCV 97.2 H MCH 32.7 H MCHC 33.7 RDW 13.9 Plt Count 112 L MPV 8.3 Absolute Neuts (auto) 4.10 Absolute Lymphs (auto) 1.00 Absolute Monos (auto) 0.50 Absolute Eos (auto) 0.00 Absolute Basos (auto) 0.00 Neutrophils % 71.8 Lymphocytes % 18.3 L Monocytes % 8.4 Eosinophils % 0.7 L Basophils % 0.8 PT 34.6 H* D INR 3.100 PTT (SP) 39.4 H Sodium 138 Potassium 3.9 Chloride 105 Carbon Dioxide 27 Anion Gap 9.9 L BUN 24 H Creatinine 1.06 BUN/Creatinine Ratio 22.6 H Random Glucose 104 Serum Osmolality 280.0 Calcium 10.4 H Total Bilirubin 1.6 H AST 27 ALT 17 Alkaline Phosphatase 35 L Troponin I Serum Total Protein 5.9 L Albumin 3.7 Globulin 2.2 L Albumin/Globulin Ratio 1.7 Stool Occult Blood 01/16/17 01/16/17 14:30 15:26 WBC RBC Hgb Hct MCV MCH MCHC RDW Plt Count MPV Absolute Neuts (auto) Absolute Lymphs (auto) Absolute Monos (auto) Absolute Eos (auto) Absolute Basos (auto) Neutrophils % Lymphocytes % Monocytes % Eosinophils % Basophils % PT INR PTT (SP) Sodium Potassium Chloride Carbon Dioxide Anion Gap BUN Creatinine BUN/Creatinine Ratio Random Glucose Serum Osmolality Calcium Total Bilirubin AST ALT Alkaline Phosphatase Troponin I < 0.02 Serum Total Protein Albumin Globulin Albumin/Globulin Ratio Stool Occult Blood Positive - EKG/XRAY/CT EKG: Sinus Comments: heart rate 66,pacemaker rhythm XRAY: chest - no acute abnormalities CT Ordered: Yes - no hemorrhage or infarct Departure - Departure Clinical Impression: Current use of 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, History of atrial fibrillation GIH (gastrointestinal hemorrhage) Qualifiers: GI bleed type/associated pathology: unspecified gastrointestinal hemorrhage type Qualified Code(s): K92.2 - Gastrointestinal hemorrhage, unspecified Fall Qualifiers: Encounter type: initial encounter Qualified Code(s): W19.XXXA - Unspecified fall, initial encounter Contusion of head Qualifiers: Encounter type: initial encounter Contusion of head detail: unspecified part of head Qualified Code(s): S00.93XA - Contusion of unspecified part of head, initial encounter Time of Disposition: 18:43 Disposition: Transfer to Hospital Departure Forms: ED Discharge - Pt. Copy, Patient Portal Self Enrollment Instructions: DI for Trauma Referrals: Krzysztof Burns MD [Primary Care Provider] - 1-2 Weeks Home Medications: Ambulatory Orders Omeprazole 20 mg PO BEDTIME 07/27/15 Warfarin Sodium 2.5 mg PO BEDTIME 07/27/15 Amlodipine Besylate [Norvasc] 2.5 mg PO BEDTIME 08/31/15 Isosorbide Mononitrate [Imdur] 30 mg PO DAILY 08/31/15 Aspirin [Aspirin EC] 81 mg PO DAILY 07/06/16 Celecoxib 200 mg PO DAILY 07/06/16 Meloxicam 15 mg PO DAILY 07/06/16 Metoprolol Succinate [Metoprolol Succinate ER] 50 mg PO DAILY 07/06/16 Simvastatin 20 mg PO BEDTIME 07/06/16 Tamsulosin [Flomax] 0.4 mg PO BEDTIME 07/06/16 Tramadol HCl 50 mg PO Q4H PRN 07/06/16 Nitroglycerin 0.4 mg Tab [Nitrostat] 1 ea SL Q5MIN PRN #1 bttl 07/07/16 Valacyclovir HCl [Valtrex] 1 gm PO BID #14 tab 10/25/16 methylPREDNISolone TAB [Medrol Tab] 4 mg PO DAILY #21 tab 10/25/16 Transfer to Outside Facility - Transfer Information Accepting Provider:: D/W Dr. Liang oPole-ER Accepting Facility: [facility] Reason for Transfer: required specialist not available
--- NOTE | 2017-01-16 15:31 | RAD ---
EXAM DESCRIPTION: Chest,1 View CLINICAL HISTORY: Fall injury. Pain FINDINGS/ IMPRESSION: Comparison 11/17/2016 Cardiac pacemaker. Normal heart size. Tortuous aorta. No edema, infiltrates or effusions No diagnostic acute bony abnormality. No rib fracture seen. Electronically signed by: Kiran Marie MD 01/16/2017 3:29 PM CDT
[2017-01-16] MEDS ORDERED: PANTOPRAZOLE INJECTION 80 MG in SODIUM CHLORIDE 0.9% 100ML 80 ML IVPB ONE (15:34)
[2017-01-16] MEDS ORDERED: PANTOPRAZOLE SODIUM IV 40 MG VIAL ONE (15:46)
[2017-01-16] MEDS ORDERED: SODIUM CHLORIDE 0.9% 100ML 100 ML IVPB ONE (15:46)
--- NOTE | 2017-01-16 16:18 | CT ---
EXAM DESCRIPTION: CT head without contrast CLINICAL HISTORY: Trauma. Contusion. Headache COMPARISON: None. TECHNIQUE: Noncontrast spiral CT of the brain. This exam was performed according to our departmental dose-optimization program, which includes automated exposure control, adjustment of the mA and/or kV according to patient size and/or use of iterative reconstruction technique FINDINGS: No intracranial hemorrhage or mass lesion. Cerebral volume loss with prominence of cortical sulci and ventricular system. White matter disease, nonspecific likely remote microvascular ischemia. No diagnostic focal abnormality Extensive atherosclerotic vascular calcifications of the cavernous internal carotid arteries and calcifications in the bilateral vertebral arteries No calvarial or skull base lesion or fracture. No paranasal sinus or mastoid fluid IMPRESSION: Negative acute traumatic noncontrast head CT CT is insensitive for early evaluation of acute stroke. If there is clinical concern for acute ischemia, an MRI may be considered. Electronically signed by: Kiran Marie MD 01/16/2017 4:17 PM CDT
[2017-01-16 19:16] VITALS: BP 126/71; TEMP 96.4
== END 2017-01-16 19:16 | disposition short-term general hospital (02) ==
LOC: ER 13:41
DX: S00.93XA Contusion of unspecified part of head, initial encounter (principal); K92.2 Gastrointestinal hemorrhage, unspecified; I48.91 Unspecified atrial fibrillation; Z79.01 Long term (current) use of anticoagulants; I25.2 Old myocardial infarction; I10 Essential (primary) hypertension; Z95.0 Presence of cardiac pacemaker; Z85.828 Personal history of other malignant neoplasm of skin; Z79.899 Other long term (current) drug therapy; Z79.82 Long term (current) use of aspirin; W19.XXXA Unspecified fall, initial encounter; Y92.9 Unspecified place or not applicable
CPT/HCPCS: 70450; 71010; 80053; 82270; 84484; 85025; 85610; 85730; 93005; J7050

== ENCOUNTER → 2017-01-24 | Outpatient (CLI) | payer MEDICARE | END | disposition home or self-care (01) | LOC: LAB.O 13:53 | PROVIDERS: ATTEND Urology | DX: R31.9 Hematuria, unspecified (principal); R30.0 Dysuria ==

== ENCOUNTER 2017-02-01 14:13 | Emergency (ER) | payer MEDICARE ==
[2017-02-01 14:31] VITALS: TEMP 98.6
--- NOTE | 2017-02-01 14:46 | ED.PDOC ---
History of Present Illness - General Chief Complaint: Trauma Stated Complaint: Abrasion R forehead, Skin tear R hand Time Seen by Provider: 02/01/17 14:16 Source: patient, RN notes reviewed, Vital Signs reviewed, family Exam Limitations: no limitations - History of Present Illness Initial Comments: Patient come to ER after falling at home. He fell against the house striking his R forehead on the brick. No LOC. Son reports he has been having frequent falls for the past several days. He is off his Coumadin due to GI bleed & pending removal of 3 polyps in his colon. He also has some L side pain, upper lateral ribs, that are now tender to touch. Timing/Duration: momentarily Severity: moderate Improving Factors: rest Worsening Factors: nothing Associated Symptoms: chest pain, weakness - Reports he can just be walking along and his muscles seem to stop working and he falls. Allergies/Adverse Reactions: Allergies NO KNOWN ALLERGY Allergy (Verified 01/16/17 14:05) Home Medications: Ambulatory Orders Omeprazole 20 mg PO BEDTIME 07/27/15 Warfarin Sodium 2.5 mg PO BEDTIME 07/27/15 Amlodipine Besylate [Norvasc] 2.5 mg PO BEDTIME 08/31/15 Isosorbide Mononitrate [Imdur] 30 mg PO DAILY 08/31/15 Aspirin [Aspirin EC] 81 mg PO DAILY 07/06/16 Celecoxib 200 mg PO DAILY 07/06/16 Meloxicam 15 mg PO DAILY 07/06/16 Metoprolol Succinate [Metoprolol Succinate ER] 50 mg PO DAILY 07/06/16 Simvastatin 20 mg PO BEDTIME 07/06/16 Tamsulosin [Flomax] 0.4 mg PO BEDTIME 07/06/16 Tramadol HCl 50 mg PO Q4H PRN 07/06/16 Nitroglycerin 0.4 mg Tab [Nitrostat] 1 ea SL Q5MIN PRN #1 bttl 07/07/16 Valacyclovir HCl [Valtrex] 1 gm PO BID #14 tab 10/25/16 methylPREDNISolone TAB [Medrol Tab] 4 mg PO DAILY #21 tab 10/25/16 Review of Systems - Review of Systems Constitutional: States: weakness EENTM: States: see HPI. Denies: blurred vision, double vision Respiratory: States: no symptoms reported. Denies: short of breath Cardiology: States: chest pain. Denies: palpitations Gastrointestinal/Abdominal: Denies: abdominal pain, nausea Musculoskeletal: States: see HPI - L rib pain Skin: States: other - abrasion/injury R forehead. 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) Hx of HIV: No Hx Hepatitis C: No Hx MRSA: No Surgical History: other - Vaccination History Hx Tetanus, Diphtheria Vaccination: No Hx Influenza Vaccination: Yes - 2017 Hx Pneumococcal Vaccination: Yes - Social History Hx Tobacco Use: Yes - Quit 1965 Hx Alcohol Use: No Hx Substance Use: No Hx Substance Use Treatment: No Hx Depression: No Hx Physical Abuse: No Hx Emotional Abuse: No Hx Suspected Abuse: No - Female History Patient : No Family Medical History - Family History Mother Family History: Unknown Living Status: Cause of : stroke Hx Family Asthma: No Hx Family Congestive Heart Failure: No Hx Family Hypertension: No Hx Family Stroke: Yes Hx Cardiac Disease: No Hx Family Diabetes: No Hx Family Cancer: No Physical Exam - Physical Exam General Appearance: Alert, Comfortable, No apparent distress, Well Developed, Well Groomed, Well Hydrated, Well Nourished Eye Exam: bilateral normal Ears, Nose, Throat: hearing grossly normal, normal ENT inspection Neck: supple, normal inspection Respiratory: lungs clear, normal breath sounds, no respiratory distress, no accessory muscle use, other - Tender over ribs on L side from armpit to mid chest. Cardiovascular/Chest: normal peripheral pulses, regular rate, rhythm, no edema, no gallop, no JVD, no murmur Extremity: normal inspection, no pedal edema Neurologic: no motor/sensory deficits, alert, normal mood/affect, oriented x 3 Skin Exam: normal color - Except small abrasions to bilateral palms and a large abrasion/skin tear with swelling & hematoma R forehead, warm/dry Comments: Vital Signs 10/26/17 14:25 Temperature 98.6 F Pulse Rate [ 60 Right Radial] Respiratory 18 Rate Blood Pressure 125/60 [Right Arm] O2 Sat by Pulse 98 Oximetry Progress - EKG/XRAY/CT XRAY: chest - No rib fractures per Radiologist CT Ordered: Yes - Head: no intracranial abnormality per Radiologist Departure - Departure Clinical Impression: Contusion of scalp Qualifiers: Encounter type: initial encounter Qualified Code(s): S00.03XA - Contusion of scalp, initial encounter Fall Qualifiers: Encounter type: initial encounter Qualified Code(s): W19.XXXA - Unspecified fall, initial encounter Time of Disposition: 15:36 Disposition: Discharge to Home or Self Care Condition: Good Departure Forms: ED Discharge - Pt. Copy, Patient Portal Self Enrollment Instructions: DI for Contusion Diet: resume usual diet Activity: ambulate only with walker Referrals: Krzysztof Burns MD [Primary Care Provider] - 1-2 Weeks Home Medications: Ambulatory Orders Omeprazole 20 mg PO BEDTIME 07/27/15 Warfarin Sodium 2.5 mg PO BEDTIME 07/27/15 Amlodipine Besylate [Norvasc] 2.5 mg PO BEDTIME 08/31/15 Isosorbide Mononitrate [Imdur] 30 mg PO DAILY 08/31/15 Aspirin [Aspirin EC] 81 mg PO DAILY 07/06/16 Celecoxib 200 mg PO DAILY 07/06/16 Meloxicam 15 mg PO DAILY 07/06/16 Metoprolol Succinate [Metoprolol Succinate ER] 50 mg PO DAILY 07/06/16 Simvastatin 20 mg PO BEDTIME 07/06/16 Tamsulosin [Flomax] 0.4 mg PO BEDTIME 07/06/16 Tramadol HCl 50 mg PO Q4H PRN 07/06/16 Nitroglycerin 0.4 mg Tab [Nitrostat] 1 ea SL Q5MIN PRN #1 bttl 07/07/16 Valacyclovir HCl [Valtrex] 1 gm PO BID #14 tab 10/25/16 methylPREDNISolone TAB [Medrol Tab] 4 mg PO DAILY #21 tab 10/25/16
--- NOTE | 2017-02-01 15:22 | CT ---
EXAM DESCRIPTION: Head CLINICAL HISTORY: 86 years, Male, Fell and hit R forehead of [employer] house COMPARISON: January 16 FINDINGS: Unenhanced images through the brain. This examination was performed according to our departmental dose optimization program, which includes automatic exposure control, adjustment of the MA and/or kV according to the patient size and/or use of iterative reconstruction technique. Stable prominent ventricles and sulci. No intracranial hemorrhage or mass. Moderate microischemic change periventricular white matter. Right frontal subcutaneous contusion, new since prior study.. Mild ethmoid sinus mucosal thickening. No depressed calvarial fracture. IMPRESSION: No intracranial hemorrhage or mass. Atrophy and microischemic change similar to January 16. Right frontal subcutaneous confusion Electronically signed by: Juan J Haddad MD 02/01/2017 3:20 PM CDT
--- NOTE | 2017-02-01 15:30 | RAD ---
EXAM DESCRIPTION: XR RIBS 2 VIEWS UNILATERAL CLINICAL HISTORY: 86-year-old, male, frequent falls, left rib pain. COMPARISON: Chest radiograph dated January 16, 2017. FINDINGS: Left rib series was acquired. No obvious displaced fractures demonstrated of the left ribs Dual-lead left cardiac pacemaker in stable position. Cardiomediastinal silhouette and pulmonary vascularity are within normal limits. Calcific atherosclerosis and tortuosity noted of the thoracic aorta. Lungs are clear without focal consolidative infiltrates. No pleural effusion. No pneumothorax. IMPRESSION: 1. No radiographic evidence for displaced rib fractures or aggressive bony lesions. 2. No radiographic evidence for acute cardiopulmonary process. 3. Other findings as above. Electronically signed by: Elbert Horner MD 02/01/2017 3:29 PM CDT
[2017-02-01] MEDS ORDERED: NEOMYCIN-BACITRACIN-POLYMYXIN 0.9 GM UD TOP ONE ×2 (15:35)
[2017-02-01 16:00] VITALS: BP 108/71; O2SAT 97
== END 2017-02-01 15:45 | disposition home or self-care (01) ==
LOC: ER 14:13
DX: S00.03XA Contusion of scalp, initial encounter (principal); I25.2 Old myocardial infarction; I48.91 Unspecified atrial fibrillation; Z87.891 Personal history of nicotine dependence; Z95.0 Presence of cardiac pacemaker; Z85.828 Personal history of other malignant neoplasm of skin; Z79.82 Long term (current) use of aspirin; Z79.899 Other long term (current) drug therapy

== ENCOUNTER 2017-02-17 12:51 | Emergency (ER) | payer MEDICARE ==
--- NOTE | 2017-02-17 14:28 | CT ---
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 Coronal and sagittal reformats were obtained. This exam was performed according to our departmental dose-optimization program which includes automated exposure control, adjustment of the mA and/or kV according to patient size and/or use of iterative reconstruction technique. Findings: There is no acute cortical infarction, hemorrhage, midline shift, mass effect, or hydrocephalus. Patchy and confluent areas of diminished attenuation are seen involving the subcortical and periventricular white matter, presumable related to small vessel occlusive disease. Global parenchymal volume loss is present. The calvaria and skull base are unremarkable. Paranasal sinuses and mastoid air cells are well aerated. Impression: 1. No acute intracranial abnormality. 2. Senescent changes. Procedure: XR CHEST 1 VIEW, CT HEAD WITHOUT IV CONTRAST Exam Date: 02/17/2017 1:21 PM TEST ENGINEERING MANAGER Ordering Provider: Ricardo Reddy Clinical Indication: multiple falls Comparison: None Findings: Left-sided dual-lead pacemaker is present. Lungs are clear. Heart size is within normal limits. No acute osseous abnormality. Impression: No acute pulmonary process. Electronically signed by: Yee Bernard MD 02/17/2017 2:26 PM TEST ENGINEERING MANAGER
[2017-02-17] MEDS ORDERED: SODIUM CHLORIDE 0.9% 1000ML 1,000 ML IVS ONE (15:52)
--- NOTE | 2017-02-17 15:58 | ED.PDOC ---
History of Present Illness - General Chief Complaint: Trauma Stated Complaint: Disoriented, fallen 4 times today Time Seen by Provider: 02/17/17 12:54 Source: patient, family Exam Limitations: other - ild dementia - History of Present Illness Initial Comments: the patient is an 86-year-old male with mild dementia center by his home health nurse secondary to falling multiple times over the last few days. The patient primarily falls when he goes to get up and go to the bathroom. He is supposed to use a walker or a cane or some assistive device but essentially never does. The patient is very orthostatic here today. His systolic blood pressures go from the 130s down to the 90s with tilt testing. He does get dizzy with this. He is on multiple medications that can affect his blood pressure negatively. The patient also is taking Coumadin. He does think he said his head with one of the falls in the last couple of days. He does have a scab to his right parietal area. He is not hurting elsewhere otherwise with the exception of some mild pain in his left lateral rib cage where he think hefell and hit something. Timing/Duration: unsure Severity: moderate Improving Factors: nothing Worsening Factors: nothing Associated Symptoms: malaise, syncope, weakness Allergies/Adverse Reactions: Allergies NO KNOWN ALLERGY Allergy (Verified 01/16/17 14:05) Home Medications: Ambulatory Orders Omeprazole 20 mg PO BEDTIME 07/27/15 Warfarin Sodium 2.5 mg PO BEDTIME 07/27/15 Amlodipine Besylate [Norvasc] 2.5 mg PO BEDTIME 08/31/15 Isosorbide Mononitrate [Imdur] 30 mg PO DAILY 08/31/15 Aspirin [Aspirin EC] 81 mg PO DAILY 07/06/16 Celecoxib 200 mg PO DAILY 07/06/16 Meloxicam 15 mg PO DAILY 07/06/16 Metoprolol Succinate [Metoprolol Succinate ER] 50 mg PO DAILY 07/06/16 Simvastatin 20 mg PO BEDTIME 07/06/16 Tamsulosin [Flomax] 0.4 mg PO BEDTIME 07/06/16 Tramadol HCl 50 mg PO Q4H PRN 07/06/16 Nitroglycerin 0.4 mg Tab [Nitrostat] 1 ea SL Q5MIN PRN #1 bttl 07/07/16 Valacyclovir HCl [Valtrex] 1 gm PO BID #14 tab 07/19/17 methylPREDNISolone TAB [Medrol Tab] 4 mg PO DAILY #21 tab 10/25/16 Review of Systems - Review of Systems Constitutional: States: malaise EENTM: States: no symptoms reported Respiratory: States: no symptoms reported Cardiology: States: no symptoms reported, chest pain - left lateral ribs Gastrointestinal/Abdominal: States: no symptoms reported Genitourinary: States: no symptoms reported Musculoskeletal: States: see HPI Skin: States: see HPI Neurological: States: see HPI Endocrine: States: no symptoms reported All other Systems: No Change from Baseline Past Medical History (General) - Patient Medical History Hx Seizures: No Hx Stroke: No Hx Dementia: No Hx Asthma: No Hx of COPD: No Hx Cardiac Disorders: Yes - UT's, Atrial Fib Hx Congestive Heart Failure: No Hx Pacemaker: Yes Hx Hypertension: Yes Hx Thyroid Disease: No Hx Diabetes: No Hx Gastroesophageal Reflux: No Hx Renal Disease: - Hx kidney stones 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) Hx of HIV: No Hx Hepatitis C: No Hx MRSA: No - Vaccination History Hx Tetanus, Diphtheria Vaccination: No Hx Influenza Vaccination: Yes - 2017 Hx Pneumococcal Vaccination: Yes - Social History Hx Tobacco Use: Yes - Quit 1965 Hx Alcohol Use: No Hx Substance Use: No Hx Substance Use Treatment: No Hx Depression: No Hx Physical Abuse: No Hx Emotional Abuse: No Hx Suspected Abuse: No - Female History Patient : No Family Medical History - Family History Mother Family History: Unknown Living Status: Cause of : stroke Hx Family Asthma: No Hx Family Congestive Heart Failure: No Hx Family Hypertension: No Hx Family Stroke: Yes Hx Cardiac Disease: No Hx Family Diabetes: No Hx Family Cancer: No Physical Exam - Physical Exam General Appearance: Alert, Comfortable, No apparent distress Eye Exam: bilateral normal Ears, Nose, Throat: other - decreased hearing bilaterally Poor dentition. Neck: full range of motion, supple Respiratory: lungs clear, normal breath sounds, no respiratory distress, no accessory muscle use, other - mild left lower lateral rib cage discomfort palpation. No gross deformity. No crepitus. No laceration or large bruises. 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 The patient has significant orthostatic hypotension. He does need to use his assistive devices such as a walker or cane when he gets up to move around. Additionally he should wait 30- 40 seconds after he stands up before he tries to walk to prevent falling. He should discontinue his amlodipine or Norvasc. he may also need to discontinue his Flomax for now. He should also discontinue his Coumadin while he is so unsteady on his feet, to prevent significant bleeding from falls. It would be beneficial if he would only get up with assistance. The patient may get benefit from some physical therapy as an outpatient. He should follow-up with his primary care doctor early this coming week. keep follow-up with home health as well. Lab work and x-ray were reassuring today - Results/Orders Results/Orders: Laboratory Tests 02/17/17 02/17/17 02/17/17 13:21 13:35 13:35 WBC 6.0 RBC 3.46 L Hgb 11.4 L Hct 34.1 L MCV 98.7 H MCH 32.9 H MCHC 33.4 RDW 14.5 Plt Count 104 L MPV 7.5 Absolute Neuts (auto) 4.60 Absolute Lymphs (auto) 0.70 L Absolute Monos (auto) 0.60 Absolute Eos (auto) 0.00 Absolute Basos (auto) 0.00 Neutrophils % 76.9 Lymphocytes % 11.6 L Monocytes % 10.7 H Eosinophils % 0.2 L Basophils % 0.6 PT 13.2 H INR 1.170 PTT (SP) 33.1 Sodium Potassium Chloride Carbon Dioxide Anion Gap BUN Creatinine BUN/Creatinine Ratio Random Glucose Serum Osmolality Calcium Total Bilirubin AST ALT Alkaline Phosphatase Serum Total Protein Albumin Globulin Albumin/Globulin Ratio Urine Color Yellow Urine Appearance Clear Urine pH 7.0 Ur Specific Jameson 1.020 Urine Protein Negative Urine Glucose (UA) Negative Urine Ketones 15 H Urine Blood Negative Urine Nitrite Negative Urine Bilirubin Negative Urine Urobilinogen 1.0 Ur Leukocyte Esterase Negative Urine RBC 0 Urine WBC 0 Ur Epithelial Cells 0-1 Urine Bacteria 0 02/17/17 13:35 WBC RBC Hgb Hct MCV MCH MCHC RDW Plt Count MPV Absolute Neuts (auto) Absolute Lymphs (auto) Absolute Monos (auto) Absolute Eos (auto) Absolute Basos (auto) Neutrophils % Lymphocytes % Monocytes % Eosinophils % Basophils % PT INR PTT (SP) Sodium 137 Potassium 4.1 Chloride 107 Carbon Dioxide 26 Anion Gap 8.1 L BUN 16 Creatinine 1.26 BUN/Creatinine Ratio 12.7 Random Glucose 124 H Serum Osmolality 276.4 Calcium 10.6 H Total Bilirubin 1.5 H AST 40 ALT 14 Alkaline Phosphatase 48 Serum Total Protein 5.9 L Albumin 3.6 Globulin 2.3 Albumin/Globulin Ratio 1.6 Urine Color Urine Appearance Urine pH Ur Specific Jameson Urine Protein Urine Glucose (UA) Urine Ketones Urine Blood Urine Nitrite Urine Bilirubin Urine Urobilinogen Ur Leukocyte Esterase Urine RBC Urine WBC Ur Epithelial Cells Urine Bacteria EKG shows mild sinus tachycardia after activity. Q waves in inferior leads. Possible old septal UT. Normal corrected QT interval. No obvious acute ST segment changes concerning for ischemia. The patient is having no chest pain. chest x-ray and head CT showed no acute pathology Departure - Departure Clinical Impression: Orthostatic hypotension, Recurrent falls Disposition: Discharge to Home or Self Care Condition: Poor Departure Forms: ED Discharge - Pt. Copy, Patient Portal Self Enrollment Diet: regular diet Activity: increase activity as tolerated Referrals: Krzysztof Burns MD [Primary Care Provider] - 1-5 Days Home Medications: Ambulatory Orders Omeprazole 20 mg PO BEDTIME 07/27/15 Warfarin Sodium 2.5 mg PO BEDTIME 07/27/15 Amlodipine Besylate [Norvasc] 2.5 mg PO BEDTIME 08/31/15 Isosorbide Mononitrate [Imdur] 30 mg PO DAILY 08/31/15 Aspirin [Aspirin EC] 81 mg PO DAILY 07/06/16 Celecoxib 200 mg PO DAILY 07/06/16 Meloxicam 15 mg PO DAILY 07/06/16 Metoprolol Succinate [Metoprolol Succinate ER] 50 mg PO DAILY 07/06/16 Simvastatin 20 mg PO BEDTIME 07/06/16 Tamsulosin [Flomax] 0.4 mg PO BEDTIME 07/06/16 Tramadol HCl 50 mg PO Q4H PRN 07/06/16 Nitroglycerin 0.4 mg Tab [Nitrostat] 1 ea SL Q5MIN PRN #1 bttl 07/07/16 Valacyclovir HCl [Valtrex] 1 gm PO BID #14 tab 10/25/16 methylPREDNISolone TAB [Medrol Tab] 4 mg PO DAILY #21 tab 10/25/16 Additional Instructions: the patient is a 86-year-old male presenting to the emergency room after multiple falls in the last 24-48 hrs. The patient has significant orthostatic hypotension. He does need to use his assistive devices such as a walker or cane when he gets up to move around. Additionally he should wait 30- 40 seconds after he stands up before he tries to walk to prevent falling. He should discontinue his amlodipine or Norvasc. he may also need to discontinue his Flomax for now. He should also discontinue his Coumadin while he is so unsteady on his feet, to prevent significant bleeding from falls. It would be beneficial if he would only get up with assistance. The patient may get benefit from some physical therapy as an outpatient. He should follow-up with his primary care doctor early this coming week. keep follow-up with home health as well. Lab work and x-ray were reassuring today
[2017-02-17 18:50] VITALS: BP 149/74; O2SAT 95
== END 2017-02-17 17:15 | disposition home or self-care (01) ==
LOC: ER 12:51
DX: I95.1 Orthostatic hypotension (principal); Z91.81 History of falling; I25.2 Old myocardial infarction; I48.91 Unspecified atrial fibrillation; Z95.0 Presence of cardiac pacemaker; Z79.82 Long term (current) use of aspirin; Z79.899 Other long term (current) drug therapy; Z79.01 Long term (current) use of anticoagulants; Z87.891 Personal history of nicotine dependence
CPT/HCPCS: 36415; 70450; 71010; 80053; 81001; 85025; 85610; 85730; J7030

== ENCOUNTER → 2017-02-22 | Outpatient (CLI) | payer MEDICARE ==
--- NOTE | 2017-02-23 05:26 | US ---
Procedure: US CAROTID DOPPLER BILATERAL Exam Date: 02/22/2017 Ordering Provider: YANG RUELAS Clinical Indication: FREQUENT FALLS Comparison: None TECHNIQUE : Real-time cerebrovascular ultrasonography was obtained from sternal notch to the angle of the mandible bilaterally utilizing villasenor scale, color flow and spectral Doppler analysis. Systolic velocity ratios were calculated for internal carotid artery to common carotid artery bilaterally. FINDINGS: RIGHT CAROTID BIFURCATION: Mild atherosclerotic plaque. Peak systolic and end-diastolic velocities in the right internal carotid artery are 49 and 15 cm/s. Internal carotid/common carotid ratio is 1.0. Right vertebral flow is antegrade. LEFT CAROTID BIFURCATION: Mild atherosclerotic plaque. Peak systolic and end-diastolic velocities in the left internal carotid artery are 43 and 11 cm/s. Internal carotid/common carotid ratio is 0.8. Left vertebral flow is antegrade. IMPRESSION: 1. Mild atherosclerotic plaque in each carotid bulb and ICA origin. 2. There is no significant stenosis (less than 50%) at either ICA origin. 3. Bilateral antegrade vertebral artery flow. Electronically signed by: Cl Mcnulty MD 02/23/2017 5:25 AM [facility]
== END | disposition home or self-care (01) ==
LOC: US 16:22
PROVIDERS: ATTEND Physician Assistant
DX: I65.23 Occlusion and stenosis of bilateral carotid arteries (principal); Z91.81 History of falling

== ENCOUNTER → 2017-03-06 | Outpatient (CLI) | payer MEDICARE | END | disposition home or self-care (01) | LOC: GMAJ 15:41 | PROVIDERS: ATTEND Family Medicine | DX: F03.90 Unspecified dementia, unspecified severity, without behavioral disturbance, psychotic disturbance, mood disturbance, and anxiety (principal) ==

== ENCOUNTER 2017-03-25 06:18 | Inpatient (IN) | payer MEDICARE ==
--- NOTE | 2017-03-25 06:49 | ED.PDOC ---
History of Present Illness <Julio Cesar Tovar - Last Filed: 03/25/17 06:49> - General Source: patient, family Exam Limitations: clinical condition - History of Present Illness Initial Comments: the patient is an 86-year-old male presenting to the emergency room secondary to progressive weakness, progressive confusion, and progressive anorexia over the last month or 2. The patient was started on Megace not long ago for the anorexia. He has been having more frequent falls over the last couple of weeks and had one this morning sustaining a small skin tear to the right forearm. He seems to move all extremities well. He does appear quite cachectic. Son reports that his oral intake over the past few days has been very poor. No syncope or near syncope. Son does report that the medications have been going down okay. He has not been throwing up. No definite history of any cancer. He has been placed on the dementia medications within the last few months. Timing/Duration: unsure Severity: moderate Improving Factors: nothing Worsening Factors: nothing Associated Symptoms: loss of appetite, malaise, weakness <Ricardo Reddy - Last Filed: 03/25/17 10:29> - General Chief Complaint: Neuro Symptoms/Deficits Stated Complaint: fall, impaired memory Time Seen by Provider: 03/25/17 06:38 - History of Present Illness Allergies/Adverse Reactions: Allergies NO KNOWN ALLERGY Allergy (Verified 01/16/17 14:05) Home Medications: Ambulatory Orders Omeprazole 20 mg PO BEDTIME 07/27/15 Warfarin Sodium 3 mg PO BEDTIME 07/27/15 Isosorbide Mononitrate [Imdur] 30 mg PO DAILY 08/31/15 Celecoxib 200 mg PO DAILY 07/06/16 Simvastatin 20 mg PO BEDTIME 07/06/16 Nitroglycerin 0.4 mg Tab [Nitrostat] 1 ea SL Q5MIN PRN #1 bttl 07/07/16 Escitalopram [Lexapro] 10 mg PO DAILY 03/25/17 Memantine HCl-Donepezil HCl [Namzaric 28-10 mg] 1 cap PO DAILY 03/25/17 Mirabegron [Myrbetriq] 25 mg PO DAILY 03/25/17 Review of Systems - Review of Systems Constitutional: States: malaise, weakness EENTM: States: no symptoms reported Respiratory: States: no symptoms reported Cardiology: States: no symptoms reported Gastrointestinal/Abdominal: States: other - norexia Genitourinary: States: no symptoms reported Musculoskeletal: States: other - generalized weakness Skin: States: no symptoms reported Neurological: States: tremors, weakness, other - progressive confusion Endocrine: States: unexplained weight loss All other Systems: No Change from Baseline <Ricardo Reddy - Last Filed: 03/25/17 10:29> Past Medical History (General) - Patient Medical History Hx Seizures: No Hx Stroke: No Hx Dementia: No Hx Asthma: No Hx of COPD: No Hx Cardiac Disorders: Yes - MN's, Atrial Fib Hx Congestive Heart Failure: No Hx Pacemaker: Yes Hx Hypertension: Yes Hx Thyroid Disease: No Hx Diabetes: No Hx Gastroesophageal Reflux: No Hx Renal Disease: Yes - Hx kidney stones 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) Hx of HIV: No Hx Hepatitis C: No Hx MRSA: No Surgical History: noncontributory - Vaccination History Hx Tetanus, Diphtheria Vaccination: No Hx Influenza Vaccination: Yes - 2017 Hx Pneumococcal Vaccination: Yes - Social History Hx Tobacco Use: Yes - Quit 1966 Hx Alcohol Use: No Hx Substance Use: No Hx Substance Use Treatment: No Hx Depression: No Hx Physical Abuse: No Hx Emotional Abuse: No Hx Suspected Abuse: No - Female History Patient : No <Julio Cesar Tovar - Last Filed: 03/25/17 06:49> Family Medical History - Family History Mother Family History: Unknown Living Status: Cause of : stroke Hx Family Asthma: No Hx Family Congestive Heart Failure: No Hx Family Hypertension: No Hx Family Stroke: Yes Hx Cardiac Disease: No Hx Family Diabetes: No Hx Family Cancer: No <Julio Cesar Tovar - Last Filed: 03/25/17 06:49> Physical Exam - Physical Exam General Appearance: Alert, Frail, No apparent distress Eye Exam: bilateral normal Ears, Nose, Throat: normal pharynx - ucous membranes are mildly dry, other - hronic bilateral hearing loss Neck: full range of motion, supple, other - o evidence of any head trauma today Respiratory: lungs clear, normal breath sounds, no respiratory distress, no accessory muscle use Cardiovascular/Chest: normal peripheral pulses, no edema, other - regular rate Peripheral Pulses: radial,right: 2+, radial,left: 2+, dorsalis pedis,right: 2+, dorsalis pedis,left: 2+ Gastrointestinal/Abdominal: non tender, soft, other - abdomen scaphoid Rectal Exam: deferred Back Exam: normal inspection, no CVA tenderness, no vertebral tenderness Extremity: normal range of motion, non-tender, no pedal edema, normal capillary refill, other - he does have a warning skin tears and right forearm 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 He does know that he fell. Skin Exam: normal color Comments: Vital Signs - 24 hr 03/25/17 03/25/17 03/25/17 06:20 06:26 07:52 Temperature 97.2 F L Pulse Rate [ 73 69 monitor] Respiratory 16 16 16 Rate Blood Pressure 153/74 140/108 [Right Arm] O2 Sat by Pulse 95 Oximetry 03/25/17 03/25/17 08:25 09:41 Temperature 97.2 F L 98.4 F Pulse Rate [ 61 70 monitor] Respiratory 17 17 Rate Blood Pressure 156/89 138/81 [Right Arm] O2 Sat by Pulse 100 100 Oximetry <Ricardo Reddy L - Last Filed: 03/25/17 10:29> Progress - Progress Progress: 03/25/17 10:23 the patient's an 86-year-old male presenting to emergency room secondary to a progression of symptoms over the last several weeks including progressive confusion, progressive weakness, and worsening anorexia. The patient does have known dementia which is progressive. He was also found to have hypercalcemia here. He has received a couple liters of IV fluids and will be receiving a small dose of Lasix to help reduce the calcium. CT scans of abdomen done of the head, chest abdomen and pelvis to help rule out cancer as the source of the hypercalcemia. No obvious cancer has been found. Certainly the dehydration and the small urinary tract infection are likely contributing. He will be receiving a dose of Rocephin for urinary tract infection and the urine is being cultured. Given his progressive deterioration, consideration should be given towards discontinuation of the Coumadin and simvastatin. He is receiving a dose of milk of magnesia for constipation. Relieving the constipation may improve the anorexia. Plan on ultrasound of the gallbladder tomorrow as active gallbladder disease may also be contributing to anorexia however there are normal liver function tests and no overt evidence of infection at this time. Admitted for further care. The patient will likely need to be assessed by therapy for functional purposes. - Results/Orders Results/Orders: Laboratory Tests 03/25/17 03/25/17 03/25/17 06:47 06:52 06:55 WBC 8.4 RBC 4.79 Hgb 15.4 Hct 45.9 MCV 95.9 H MCH 32.1 H MCHC 33.6 RDW 13.4 Plt Count 124 L MPV 8.3 Absolute Neuts (auto) 6.60 Absolute Lymphs (auto) 1.00 Absolute Monos (auto) 0.70 Absolute Eos (auto) 0.00 Absolute Basos (auto) 0.10 Neutrophils % 78.0 Lymphocytes % 12.2 L Monocytes % 8.8 Eosinophils % 0.2 L Basophils % 0.8 PT INR PTT (SP) Sodium Potassium Chloride Carbon Dioxide Anion Gap BUN Creatinine BUN/Creatinine Ratio Random Glucose Serum Osmolality Calcium Magnesium Total Bilirubin AST ALT Alkaline Phosphatase LD Total Creatine Kinase 100 CK-MB (CK-2) 3.4 CK-MB (CK-2) % Not Reportable Troponin I 0.03 Serum Total Protein Albumin Globulin Albumin/Globulin Ratio Amylase Lipase Total PSA TSH Urine Color Urine Appearance Urine pH Ur Specific [place] Urine Protein Urine Glucose (UA) Urine Ketones Urine Blood Urine Nitrite Urine Bilirubin Urine Urobilinogen Ur Leukocyte Esterase Urine RBC Urine WBC Ur Epithelial Cells Urine Bacteria Urine Opiates Screen Negative Urine Barbiturates Negative Ur Phencyclidine Scrn Negative U Amphetamin/Meth Scrn Negative U Benzodiazepines Scrn Negative U Cocaine Metab Screen Negative U Cannabinoids Screen Negative Ethyl Alcohol 03/25/17 03/25/17 03/25/17 06:55 06:55 06:55 WBC RBC Hgb Hct MCV MCH MCHC RDW Plt Count MPV Absolute Neuts (auto) Absolute Lymphs (auto) Absolute Monos (auto) Absolute Eos (auto) Absolute Basos (auto) Neutrophils % Lymphocytes % Monocytes % Eosinophils % Basophils % PT 44.5 H* INR 3.990 H* PTT (SP) 45.2 H Sodium 145 Potassium 3.5 L Chloride 103 Carbon Dioxide 34 H Anion Gap 11.5 L BUN 22 H Creatinine 1.14 BUN/Creatinine Ratio 19.3 Random Glucose 117 H Serum Osmolality 293.1 Calcium 12.5 H* Magnesium Total Bilirubin 1.6 H AST 35 ALT 15 Alkaline Phosphatase 49 LD Total Creatine Kinase CK-MB (CK-2) CK-MB (CK-2) % Troponin I Serum Total Protein 6.9 Albumin 4.2 Globulin 2.7 Albumin/Globulin Ratio 1.6 Amylase Lipase Total PSA TSH Urine Color Urine Appearance Urine pH Ur Specific [place] Urine Protein Urine Glucose (UA) Urine Ketones Urine Blood Urine Nitrite Urine Bilirubin Urine Urobilinogen Ur Leukocyte Esterase Urine RBC Urine WBC Ur Epithelial Cells Urine Bacteria Urine Opiates Screen Urine Barbiturates Ur Phencyclidine Scrn U Amphetamin/Meth Scrn U Benzodiazepines Scrn U Cocaine Metab Screen U Cannabinoids Screen Ethyl Alcohol < 5.40 03/25/17 03/25/17 03/25/17 08:50 08:52 08:52 WBC RBC Hgb Hct MCV MCH MCHC RDW Plt Count MPV Absolute Neuts (auto) Absolute Lymphs (auto) Absolute Monos (auto) Absolute Eos (auto) Absolute Basos (auto) Neutrophils % Lymphocytes % Monocytes % Eosinophils % Basophils % PT INR PTT (SP) Sodium Potassium Chloride Carbon Dioxide Anion Gap BUN Creatinine BUN/Creatinine Ratio Random Glucose Serum Osmolality Calcium Magnesium 2.3 Total Bilirubin AST ALT Alkaline Phosphatase LD Total 144 Creatine Kinase CK-MB (CK-2) CK-MB (CK-2) % Troponin I Serum Total Protein Albumin Globulin Albumin/Globulin Ratio Amylase 59 Lipase 32 Total PSA 1.97 TSH 2.04 Urine Color Yellow Urine Appearance Sl cloudy Urine pH 7.0 Ur Specific [place] 1.020 Urine Protein 30 Urine Glucose (UA) Negative Urine Ketones Trace Urine Blood Trace-intact H Urine Nitrite Negative Urine Bilirubin Negative Urine Urobilinogen 1.0 Ur Leukocyte Esterase Small H Urine RBC 1-3 Urine WBC 10-20 H Ur Epithelial Cells 1-3 Urine Bacteria 2+ H Urine Opiates Screen Urine Barbiturates Ur Phencyclidine Scrn U Amphetamin/Meth Scrn U Benzodiazepines Scrn U Cocaine Metab Screen U Cannabinoids Screen Ethyl Alcohol 03/25/17 08:58 WBC RBC Hgb Hct MCV MCH MCHC RDW Plt Count MPV Absolute Neuts (auto) Absolute Lymphs (auto) Absolute Monos (auto) Absolute Eos (auto) Absolute Basos (auto) Neutrophils % Lymphocytes % Monocytes % Eosinophils % Basophils % PT INR PTT (SP) Sodium Potassium Chloride Carbon Dioxide Anion Gap BUN Creatinine BUN/Creatinine Ratio Random Glucose Serum Osmolality Calcium 11.1 H Magnesium Total Bilirubin AST ALT Alkaline Phosphatase LD Total Creatine Kinase CK-MB (CK-2) CK-MB (CK-2) % Troponin I Serum Total Protein Albumin Globulin Albumin/Globulin Ratio Amylase Lipase Total PSA TSH Urine Color Urine Appearance Urine pH Ur Specific [place] Urine Protein Urine Glucose (UA) Urine Ketones Urine Blood Urine Nitrite Urine Bilirubin Urine Urobilinogen Ur Leukocyte Esterase Urine RBC Urine WBC Ur Epithelial Cells Urine Bacteria Urine Opiates Screen Urine Barbiturates Ur Phencyclidine Scrn U Amphetamin/Meth Scrn U Benzodiazepines Scrn U Cocaine Metab Screen U Cannabinoids Screen Ethyl Alcohol EKG shows a paced rhythm. X-ray of the right forearm showed no evidence of any fracture but there is degenerative joint disease. Head CT is negative for any acute pathology. CT scan of the chest shows 2 small pulmonary nodules in the right middle lobe measuring less than 6 mm in diameter. Recommended repeat CT scan for follow-up in 3 months. There are chronic emphysematous changes. He also has a chronic nondisplaced fracture of the sternum. CT scan of the abdomen and pelvis shows a mildly dilated gallbladder questionable hydropic features. No pericholecystic fluid. There are nonobstructing kidney stones. There is a left kidney cyst. He has prostate calcifications. He has significant constipation. He has DJD of the hips and spine. Ultrasound of the gallbladder is recommended tomorrow. <Ricardo Reddy - Last Filed: 03/25/17 10:29> Departure <Julio Cesar Tovar - Last Filed: 03/25/17 06:49> <Ricardo Reddy - Last Filed: 03/25/17 10:29> - Departure Clinical Impression: Delirium, Hypercalcemia, Anorexia, Generalized weakness, Cystitis, Advanced dementia Constipation Qualifiers: Constipation type: unspecified constipation type Qualified Code(s): K59.00 - Constipation, unspecified Disposition: Admit Patient Referrals: Krzysztof Burns MD [Primary Care Provider] - 1-2 Weeks Home Medications: Ambulatory Orders Omeprazole 20 mg PO BEDTIME 07/27/15 Warfarin Sodium 3 mg PO BEDTIME 07/27/15 Isosorbide Mononitrate [Imdur] 30 mg PO DAILY 08/31/15 Celecoxib 200 mg PO DAILY 07/06/16 Simvastatin 20 mg PO BEDTIME 07/06/16 Nitroglycerin 0.4 mg Tab [Nitrostat] 1 ea SL Q5MIN PRN #1 bttl 07/07/16 Escitalopram [Lexapro] 10 mg PO DAILY 03/25/17 Memantine HCl-Donepezil HCl [Namzaric 28-10 mg] 1 cap PO DAILY 03/25/17 Mirabegron [Myrbetriq] 25 mg PO DAILY 03/25/17 Decision To Admit - Decistion To Admit Decision to Admit Reason: Medical Nature Decision to Admit Date: 03/25/17 Decision to Admit Time: 10:28 <Ricardo Reddy - Last Filed: 03/25/17 10:29>
[2017-03-25] MEDS ORDERED: SODIUM CHLORIDE 0.9% 1000ML 500 ML IVS ONE (06:50)
--- NOTE | 2017-03-25 07:48 | RAD ---
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 Degenerative changes at the triscaphe and thumb CMC joints. Vascular calcifications are seen. IMPRESSION: No acute osseous abnormality in the right forearm. Procedure: CT HEAD WITHOUT IV CONTRAST, XR FOREARM 2 VIEWS Exam Date: 03/25/2017 6:42 AM ENVIRONMENTAL TECHNOLOGY PROFESSOR Ordering Provider: Julio Cesar Tovar Clinical Indication: Altered mental Status Comparison: February 17, 2017 Technique: CT images of the head were obtained without contrast administration. Coronal and sagittal reformats were obtained. This exam was performed according to our departmental dose-optimization program which includes automated exposure control, adjustment of the mA and/or kV according to patient size and/or use of iterative reconstruction technique. Findings: There is no acute cortical infarction, hemorrhage, midline shift, mass effect, or hydrocephalus. Patchy and confluent areas of diminished attenuation are seen involving the subcortical and periventricular white matter, presumable related to small vessel occlusive disease. Global parenchymal volume loss is present. The calvaria and skull base are unremarkable. Paranasal sinuses and mastoid air cells are well aerated. Impression: No acute cortical infarction or hemorrhage. Senescent changes. Electronically signed by: Yee Bernard MD 03/25/2017 7:46 AM ENVIRONMENTAL TECHNOLOGY PROFESSOR
[2017-03-25] MEDS ORDERED: SODIUM CHLORIDE 0.9% 1000ML 1,000 ML IVS ONE (07:58)
--- NOTE | 2017-03-25 08:04 | RAD ---
Procedure: XR CHEST 1 VIEW Exam Date: 03/25/2017 7:51 AM COOK MORNING Ordering Provider: Ricardo Reddy Clinical Indication: hypoxia Comparison: February 17, 2017 Findings: Stable left-sided dual-lead pacemaker. Lungs are clear. Heart size is within normal limits. No acute osseous abnormality. Impression: No acute pulmonary process. Electronically signed by: Yee Bernard MD 03/25/2017 8:03 AM [facility] MORNING
[2017-03-25] MEDS ORDERED: MULTIPLE VITAMIN INJ 10 ML, THIAMINE HCL INJ 100 MG in SODIUM CHLORIDE 0.9% 1000ML 1,00... IVS ONE (08:42)
[2017-03-25] MEDS ORDERED: FOLIC ACID 1 MG TAB PO ONE (08:42)
[2017-03-25] MEDS ORDERED: MULTIPLE VITAMIN 10 ML VIAL ONE (09:22)
[2017-03-25] MEDS ORDERED: SODIUM CHLORIDE 0.9% 1000ML 1,000 ML ONE (09:22)
[2017-03-25] MEDS ORDERED: THIAMINE HCL INJ 100 MG/ML VIAL ONE (09:22)
[2017-03-25] MEDS ORDERED: POVIDONE IODINE 10 % 15 ML UD TOP ONE (09:38)
--- NOTE | 2017-03-25 09:57 | CT ---
Procedure: CT ABDOMEN PELVIS WITH IV CONTRAST, CT CHEST WITH IV CONTRAST Exam Date: 03/25/2017 8:51 AM ACID TANK CLEANER Ordering Provider: Ricardo Reddy Clinical Indication: hypercalcemia without source, anorexia Comparison: None Technique: CT images of the thorax were acquired after the administration of intravenous contrast. In addition, CT images of the abdomen pelvis were acquired after intravenous contrast administration. Coronal and sagittal reformations were provided for further characterization. Findings: CHEST: There is evidence of mild centrilobular emphysema in the lungs. There are two separate well-circumscribed noncalcified pulmonary nodules in the right middle lobe and abut the right minor fissure. These measure up to 6 mm. No pleural effusion or pneumothorax is present. The heart size is normal. No pathologic adenopathy by size criteria in the mediastinum, bilateral anthony, or the bilateral axilla. Multilevel degenerative changes are seen throughout the thoracic spine. There is a chronic appearing fracture deformity of the proximal sternum. This fracture is nondisplaced. The visualized soft tissue structures are grossly unremarkable. ABDOMEN/PELVIS: There is evidence of cholelithiasis and there is distended appearance of the gallbladder which measures 10-11 cm in maximal dimension. There is however no significant pericholecystic fluid. Multiple nonobstructing stones are seen in bilateral kidneys measuring up to 5 mm. There is a bilobed cyst arising from the upper pole of the left kidney measures 2.8 cm. There is a thin internal septation which appears to be calcified. The remaining solid abdominal viscera are unremarkable. Heterogeneous calcifications are seen in the prostate gland. The stomach and small bowel are unremarkable. Postoperative changes are seen within the colon. There is mild colonic diverticulosis without diverticulitis. There is moderate to large amount of stool in the colon. Bones are osteopenic. Degenerative changes are seen at the SI joints and the bilateral hip joints. Multilevel degenerative disc disease is seen in the thoracic spine which is moderate to severe. Impression: CHEST: No acute pulmonary process. Two separate 6 mm noncalcified pulmonary nodules in the right middle lobe. Recommend follow-up with CT of the chest in three months to document stability. ABDOMEN/PELVIS: Cholelithiasis with slightly hydropic appearance of the gallbladder. This could be further assessed with right upper quadrant ultrasound as clinically warranted. Moderate to large amount of stool in the colon. Correlate for constipation. Nonobstructing stones in the kidneys. Bosniak type II F cyst in the left kidney. Consider surveillance ultrasound of the kidneys in six months. Other nonemergent findings, as described. Electronically signed by: Yee Bernard MD 03/25/2017 9:56 AM [facility]
[2017-03-25] MEDS ORDERED: FUROSEMIDE INJ 20 MG/2 ML VIAL IV ONE (10:29)
[2017-03-25] MEDS ORDERED: cefTRIAXone SODIUM 1 GM in SODIUM CHL 0.9% 50ML MIN-BAG+ 50 ML IVPB ONE (10:29)
[2017-03-25] MEDS ORDERED: cefTRIAXone SODIUM 1 GM VIAL ONE (10:30)
[2017-03-25] MEDS ORDERED: MAGNESIUM HYDROXIDE 30 ML UD PO ONE (10:30)
[2017-03-25] MEDS ORDERED: SODIUM CHL 0.9% 50ML MIN-BAG+ 50 ML IVPB ONE (10:31)
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
[2017-03-25] MEDS ORDERED: HALOPERIDOL LACTATE INJ 5 MG/ML VIAL IM ONE ×2 (11:09)
[2017-03-25] MEDS ORDERED: NITROGLYCERIN 0.4 MG 25 EA TAB SL PRN (15:19)
[2017-03-25] MEDS ORDERED: SODIUM CHLORIDE 0.9% (FLUSH) 10 ML SYG IV PRN ×2 (16:05→16:44)
[2017-03-25] MEDS: ZIPRASIDONE INJ 20 MG/ML VIAL IM PRN (16:34)
[2017-03-25] MEDS ORDERED: IV SET AND CAP CHANGE INJ INJ SCH (17:00)
[2017-03-25] MEDS: IV SET AND CAP CHANGE INJ INJ SCH (17:16)
[2017-03-25] MEDS ORDERED: ENOXAPARIN SODIUM 40 MG/0.4 ML SYG SUBCU SCH (17:30)
[2017-03-25] MEDS ORDERED: PANTOPRAZOLE SODIUM IV 40 MG VIAL IV SCH (17:30)
[2017-03-25] MEDS: KCL 40MEQ/NS 1,000 ML IVS PRN ×2 (18:28→22:56)
[2017-03-25] MEDS: FUROSEMIDE INJ 20 MG/2 ML VIAL IV SCH (20:18)
[2017-03-25] MEDS: OMEPRAZOLE CAP 20 MG CAP PO SCH (20:55)
[2017-03-25] MEDS: SIMVASTATIN 20 MG TAB PO SCH (20:55)
[2017-03-25] MEDS: SODIUM CHLORIDE 0.9% (FLUSH) 10 ML SYG IV SCH (20:56)
[2017-03-25] MEDS ORDERED: WARFARIN SODIUM 3 MG TAB PO SCH (21:00)
[2017-03-25] MEDS ORDERED: cefTRIAXone SODIUM 1 GM in SODIUM CHL 0.9% 50ML MIN-BAG+ 50 ML IVPB SCH (21:30)
[2017-03-26] MEDS: FUROSEMIDE INJ 20 MG/2 ML VIAL IV SCH ×4 (02:09→20:21)
[2017-03-26] MEDS: KCL 40MEQ/NS 1,000 ML IVS PRN (03:59)
[2017-03-26] MEDS ORDERED: WATER FOR INJ 10 ML VIAL INJ ONE ×2 (05:17→17:42)
[2017-03-26] MEDS: ZIPRASIDONE INJ 20 MG/ML VIAL IM PRN ×2 (05:22→18:05)
[2017-03-26] MEDS ORDERED: POTASSIUM CHLORIDE INJ 40 MEQ 40 MEQ in SODIUM CHLORIDE 0.9% 1000ML 1,000 ML IVPB PRN (09:09)
[2017-03-26] MEDS: ESCITALOPRAM 10 MG TAB PO SCH (09:12)
[2017-03-26] MEDS: CELECOXIB 100 MG CAP PO SCH (09:13)
[2017-03-26] MEDS: ISOSORBIDE MONONITRATE (IMDUR) 30 MG TAB PO SCH (09:13)
[2017-03-26] MEDS: NON-FORMULARY MEDICATION 1 EA MIS (Memantine Hcl-Donepezil Hcl [Namzaric 28-10 Mg] 1 CAP) PO SCH (09:14)
[2017-03-26] MEDS: NON-FORMULARY MEDICATION 1 EA MIS (Mirabegron [Myrbetriq] 25 MG) PO SCH (09:14)
[2017-03-26] MEDS ORDERED: DEXTROSE 10% 500ML 500 ML IVS ONE (09:40)
[2017-03-26] MEDS: SODIUM CHLORIDE 0.9% (FLUSH) 10 ML SYG IV SCH ×2 (10:45→20:39)
[2017-03-26] MEDS ORDERED: AMPICILLIN SODIUM INJ 2 GM VIAL ONE ×3 (12:10→23:14)
[2017-03-26] MEDS ORDERED: SODIUM CHL 0.9% 100ML MINI-BAG 100 ML IVPB ONE ×3 (12:10→23:14)
[2017-03-26] MEDS: AMPICILLIN INJ 2GM 2 GM in SODIUM CHL 0.9% 100ML MINI-BAG 100 ML IVPB SCH ×2 (12:16→18:05)
[2017-03-26] MEDS: PANTOPRAZOLE SODIUM TAB 40 MG PO SCH ×2 (12:24→17:33)
[2017-03-26] MEDS: WARFARIN SODIUM 2.5 MG TAB PO SCH ×2 (12:24→17:34)
--- NOTE | 2017-03-26 12:39 | US ---
EXAM DESCRIPTION: Gall Bladder CLINICAL HISTORY: Hyperbilirubenemia COMPARISON: None. TECHNIQUE: Real-time sonographic images of the right upper quadrant of the abdomen are obtained. Images are limited by patient body habitus and overlying bowel gas. Patient is unresponsive. FINDINGS: Pancreas is nonvisualized. Left lobe of liver is not well seen. Question mild nodular appearance to the liver capsule.. The gallbladder is normally distended. Foci of increased echogenicity with posterior acoustic shadowing measuring up to 9 mm are seen in the gallbladder with evidence of hypoechoic sludge. No gallbladder wall thickening or pericholecystic fluid is seen. The common bile duct measures 4.9 mm in greatest diameter. The right kidney is not visualized. Small amount of ascites is seen around the liver. IMPRESSION: Cholelithiasis without ultrasound evidence of acute cholecystitis or obvious biliary tract obstruction. There is likely sludge also seen within the gallbladder. Small amount of ascites around the liver is seen. Somewhat nodular appearance to the liver capsule with heterogeneous echogenicity of the liver suggests possible cirrhosis. Exam is limited by overlying bowel gas obscuring visualization of the left lobe of the liver and pancreas. Electronically signed by: Freddy Singh MD 03/26/2017 12:38 PM ELECTRICAL SERVICE TECHNICIAN
--- NOTE | 2017-03-26 17:34 | PN ---
DATE: 03/26/17 SUPERVISING PHYSICIAN: Kiran Reddy M.D. SUBJECTIVE: The patient is lying in bed. He has his gown pulled up over his head. He is very confused. He says he wants to go home over and over again. He is unable to answer any questions. Nursing staff reports that he has been much calmer today but still gets very confused and at times agitated. OBJECTIVE: VITAL SIGNS: He is afebrile, heart rate 75, blood [id number], respiratory rate 18, O2 sats are 94%. RESPIRATORY: Essentially clear to auscultation bilaterally. CARDIAC: Regular rate and rhythm. ABDOMEN: Soft, nondistended. Bowel sounds are positive. EXTREMITIES: No cyanosis, clubbing or edema. NEUROLOGIC: He is awake. He is oriented to person only. LABORATORY: WBCs are 13,900, hemoglobin 13.6 and hematocrit 41.2, neutrophils 85.7%, platelet count 111. Sodium 149, potassium 5, chloride 116, carbon dioxide 23, anion gap 14, BUN 27, creatinine 2.32, serum osmolality 301.8. His calcium has improved to 10.8. Total bilirubin has improved to 1.3. AST 53, alkaline phosphatase 39 with serum total protein 5.7 and albumin 3.4. TSH is 1.83. Ionized calcium is pending as well as PTH. Preliminary urine culture shows gram positive cocci. RADIOLOGY: Gallbladder ultrasound per radiology interpretation shows cholelithiasis without ultrasound evidence of acute cholecystitis or obvious biliary tract obstruction. There is likely sludge also seen in the gallbladder , small amount of ascites around the liver is seen. A somewhat nodular appearance to the liver capsule with heterogeneous echogenicity of the liver suggests possible cirrhosis. All other labs and films have been reviewed via the EMR. ASSESSMENT: 1. Hypercalcemia that has improved with fluids and diuretics. 2. Delirium most likely secondary to the Hypercalcemia. 3. Urinary tract infection with gram positive cocci with sensitivities pending. 4. Hypercoagulable state with a therapeutic INR today. 5. Anorexia. 6. Generalized weakness. 7. Elevated bilirubin. 8. Cholelithiasis 9. Constipation. 10. Acute on chronic renal failure. PLAN: We will continue present supportive care. I have discontinued his normal saline and have restarted some D10 until the patient is able to take liquids and food. I have repeated his lab for in the morning and we will wait for his ionized calcium as well as his PTH results tomorrow. His Rocephin has been discontinued and I have started him on high dose Ampicillin for his urinary tract infection. We will also get Dip Stand Loader involved for discharge planning. I have restarted his Coumadin and we will recheck his INR in the morning. I called Dr. Bernard, bale tie machine operator in [place], and he is unavailable and I will try to call him tomorrow or Dr. Garrido for further recommendations on the patient's care. Otherwise we will continue to monitor him closely and follow as needed. #[id number] [facility]TD[facility]
[2017-03-26] MEDS: OMEPRAZOLE CAP 20 MG CAP PO SCH (20:37)
[2017-03-26] MEDS: SIMVASTATIN 20 MG TAB PO SCH (20:38)
[2017-03-26] MEDS ORDERED: ENOXAPARIN SODIUM 30 MG/0.3 ML SYG SUBCU SCH (21:00)
[2017-03-27] MEDS: FUROSEMIDE INJ 20 MG/2 ML VIAL IV SCH ×3 (02:05→13:19)
[2017-03-27] MEDS ORDERED: AMPICILLIN SODIUM INJ 2 GM VIAL ONE ×4 (05:52→23:39)
[2017-03-27] MEDS ORDERED: SODIUM CHL 0.9% 100ML MINI-BAG 100 ML IVPB ONE ×4 (05:52→23:39)
[2017-03-27] MEDS: AMPICILLIN INJ 2GM 2 GM in SODIUM CHL 0.9% 100ML MINI-BAG 100 ML IVPB SCH ×6 (06:01→23:40)
[2017-03-27] MEDS: PANTOPRAZOLE SODIUM TAB 40 MG PO SCH (06:01)
[2017-03-27] MEDS: NON-FORMULARY MEDICATION 1 EA MIS (Mirabegron [Myrbetriq] 25 MG) PO SCH (09:17)
[2017-03-27] MEDS: ESCITALOPRAM 10 MG TAB PO SCH (09:17)
[2017-03-27] MEDS: ISOSORBIDE MONONITRATE (IMDUR) 30 MG TAB PO SCH (09:17)
[2017-03-27] MEDS: CELECOXIB 100 MG CAP PO SCH (09:17)
[2017-03-27] MEDS: SODIUM CHLORIDE 0.9% (FLUSH) 10 ML SYG IV SCH ×2 (09:18→20:40)
[2017-03-27] MEDS ORDERED: DEXTROSE 5% 1000ML 1,000 ML IVS PRN (10:04)
[2017-03-27] MEDS: NON-FORMULARY MEDICATION 1 EA MIS (Memantine Hcl-Donepezil Hcl [Namzaric 28-10 Mg] 1 CAP) PO SCH (11:43)
[2017-03-27] MEDS ORDERED: HYDROcodone 5MG/APAP 325MG 1 EA TAB PO PRN (14:28)
[2017-03-27] MEDS: ZIPRASIDONE INJ 20 MG/ML VIAL IM PRN (15:19)
[2017-03-27] MEDS ORDERED: FUROSEMIDE INJ 40 MG/4 ML VIAL IV ONE (16:30)
[2017-03-27] MEDS: MEMANTINE HCL DONEPEZIL HCL PO SCH (17:22)
[2017-03-27] MEDS: OMEPRAZOLE CAP 20 MG CAP PO SCH (20:40)
[2017-03-27] MEDS: SIMVASTATIN 20 MG TAB PO SCH (20:40)
[2017-03-28] MEDS ORDERED: AMPICILLIN SODIUM INJ 2 GM VIAL ONE ×4 (05:34→20:00)
[2017-03-28] MEDS ORDERED: SODIUM CHL 0.9% 100ML MINI-BAG 100 ML IVPB ONE ×4 (05:35→20:00)
[2017-03-28] MEDS: PANTOPRAZOLE SODIUM TAB 40 MG PO SCH (06:21)
[2017-03-28] MEDS: AMPICILLIN INJ 2GM 2 GM in SODIUM CHL 0.9% 100ML MINI-BAG 100 ML IVPB SCH ×3 (06:21→17:53)
[2017-03-28] MEDS: CELECOXIB 100 MG CAP PO SCH (08:00)
--- NOTE | 2017-03-28 08:20 | PN ---
SUPERVISING PHYSICIAN: Kiran Reddy MD DATE: 03/27/17 SUBJECTIVE: The patient is lying in bed. He is more awake today. He answers some simple yes/no questions appropriately. Nursing staff repots that he is less agitated today and is interacting with staff and family today. OBJECTIVE: VITAL SIGNS: Afebrile. Heart rate 79. Blood pressure 132/76. Respiratory rate 20. O2 saturation 94% on room air. LUNGS: Essentially clear to auscultation bilaterally. CARDIAC: Regular rate and rhythm. ABDOMEN: Soft, nondistended, nontender. Bowel sounds are positive. EXTREMITIES: No cyanosis, clubbing or edema. NEUROLOGIC: Awake, mostly alert and oriented to person only. LABORATORY: Labs this morning showed sodium 149, potassium 4.5, chloride 115, carbon dioxide 23, BUN 42, creatinine 3.43. Serum osmolality 306.6, calcium 11.3. Bilirubin 0.8, AST 55, alkaline phosphatase 37, albumin 3.1. Labs were repeated this afternoon and his sodium was 142, BUN 46, creatinine bumped up to 3.85 with calcium 11. AST 51, albumin 2.9. AM CBC showed white count 16.1, hemoglobin 13.5, hematocrit 40.6. platelet count 101. This afternoon, his WBCs were improved to 12.8, hemoglobin 13, hematocrit 38.8, platelet count 88, neutrophils 90.4. PT was 59.5, INR 5.35. Urine culture showed enterococcus faecalis and is sensitive to ampicillin, which he is presently on. All other labs and films have been reviewed via the EMR. ASSESSMENT: 1. Hypercalcemia, slowly improved with fluids. 2. Delirium, most likely secondary to hypercalcemia, improved. 3. Urinary tract infection with enterococcus faecalis and sensitive to ampicillin, which he is presently receiving. 4. Hypercoagulable state with elevated INR today. 5. Anorexia. 6. Generalized weakness. 7. Elevated bilirubin, improved. 8. Cholelithiasis. 9. Hypoalbuminemia. 10. Thrombocytopenia. 11. Acute on chronic renal failure, continuing to worsen. PLAN: I called Dr. Bernard, natural fabricator, today for recommendations for the patient's treatment. He suggested that we start D5W and give him fluids at least for the next 24 hours at 125 to 150 mL an hour and to check his ammonia. He also recommended that we insert a Florenec catheter and monitor his urine output frequently. I have held his Coumadin today and we will repeat PT/INR in the morning as well as scheduled labs for the morning. He is getting D5W at 125 and has had a Florence catheter inserted. He received one dose of Lasix this afternoon and I will hold off on the Lasix until I speak with Dr. Bernard in the morning. Given the patient's poor prognosis and rapid decline over the last several months, it shankar discussion needs to b had with the family as to his discharge planning. It will probably be recommended that he be on hospice or at the least, custodial. He is showing early signs of some multisystem organ failure and we will need to address his code status as well. I have discussed his case with Dr. Burns, his primary care physician, and he agrees that the discussion with his family needs to be had. I have also talked this over with Dr. Reddy, supervising physician. We will continue to monitor the patient closely and follow as needed. Dr. Reddy is the collaborating physician and available for consultation. #[id number] [facility]
[2017-03-28] MEDS: MEMANTINE HCL DONEPEZIL HCL PO SCH (09:31)
[2017-03-28] MEDS: ISOSORBIDE MONONITRATE (IMDUR) 30 MG TAB PO SCH (09:31)
[2017-03-28] MEDS: ESCITALOPRAM 10 MG TAB PO SCH (09:31)
[2017-03-28] MEDS: NON-FORMULARY MEDICATION 1 EA MIS (Mirabegron [Myrbetriq] 25 MG) PO SCH (09:32)
[2017-03-28] MEDS: SODIUM CHLORIDE 0.9% (FLUSH) 10 ML SYG IV SCH ×2 (09:33→21:00)
--- NOTE | 2017-03-28 09:57 | CT ---
EXAM DESCRIPTION: Head. CT head without contrast. CLINICAL HISTORY: Fall. COMPARISON: 03/25/2017 TECHNIQUE: Multiple axial images of the head without contrast. Multiplanar reformatted images. This exam was performed according to our departmental dose-optimization program, which includes automated exposure control, adjustment of the mA and/or kV according to patient size and/or use of iterative reconstruction technique. FINDINGS: There is no CT evidence of intracranial hemorrhage, mass effect, or large territory infarction. Moderate generalized volume loss is present. Moderate patchy supratentorial white matter hypodensities. There are no abnormal extra-axial fluid collections. Calcific plaque in the visualized arteries. There is no acute calvarial defect. The visualized paranasal sinuses and the mastoids are clear. IMPRESSION: 1. No CT evidence of an acute intracranial abnormality. 2. Senescent changes. Electronically signed by: Oz Trujillo MD 03/28/2017 9:56 AM [facility]
[2017-03-28] MEDS ORDERED: POTASSIUM CHLORIDE 20 MEQ TAB PO ONE (11:26)
[2017-03-28] MEDS ORDERED: POTASSIUM CHLORIDE 20 MEQ TAB ONE (11:40)
[2017-03-28] MEDS: IV SET AND CAP CHANGE INJ INJ SCH (17:29)
--- NOTE | 2017-03-28 20:37 | PN ---
DATE: 03/28/17 SUPERVISING PHYSICIAN: Kiran Reddy M.D. SUBJECTIVE: The patient is sitting up in bed. He is much more alert today and denies any chest pain or shortness of breath. He does get confused at times. Otherwise he answers simple yes/no questions appropriately. We discussed at length his discharge and going to [facility] for strengthening and conditioning. OBJECTIVE: VITAL SIGNS: He is afebrile, heart rate 71, blood pressure 119/68, respiratory rate 16, O2 sat is 95% on room air. RESPIRATORY: Essentially clear to auscultation bilaterally. CARDIAC: Regular rate and rhythm. GASTROINTESTINAL: Abdomen is soft, nondistended, non-tender. Bowel sounds are positive. EXTREMITIES: No cyanosis, clubbing or edema. NEUROLOGIC: He is awake. He is alert. He is oriented to person only. LABORATORY: WBCs have normalized to 9.6 with hemoglobin 13.8, hematocrit 40.9. Platelets have improved to 97. PT is 55.7 with INR 5.01. Sodium 145, potassium 3.5, chloride 107, carbon dioxide 30, BUN 31, creatinine 2.17. Magnesium 2.2 with total bilirubin 1.3. AST is slightly elevated at 48. Initial urine culture is positive for Enterococcus faecalis. Preliminary urine culture from the Florence catheter insertion from yesterday shows no growth after 24 hours. RADIOLOGY: Head CT showed no CT evidence of acute intracranial abnormality with senescent changes. All other labs and films have been reviewed via the EMR. ASSESSMENT: 1. Hypercalcemia that is slowly improved with fluids. 2. Delirium most likely secondary to hypercalcemia that has improved. 3. Urinary tract infection with Enterococcus faecalis and sensitive to Ampicillin which he is presently receiving. 4. Hypercoagulable state with an elevated INR presently on no Coumadin for 2 days. 5. Anorexia. 6. Generalized weakness. 7. Elevated bilirubin. 8. Cholelithiasis. 9. Hypoalbuminemia. 10. Thrombocytopenia. 11. Acute on chronic renal failure continuing to worsen. 12. Ultrasound evidence of possible cirrhosis. PLAN: We will continue present supportive care. At this point, his labs are most likely optimized. We have initiated a referral to [facility] for discharge for strengthening and conditioning given his poor prognosis and questionable multisystem organ failure. It may be adventitious for him to consider hospice care. Hopefully he can be discharged to [facility] tomorrow. I have discontinued his Warfarin. He will not be restarted on it. He will need to be discharged on a few additional days of antibiotics for his UTI. We will continue to monitor him closely and follow as needed. Dr. Reddy is the collaborating physician available for consultation. #[id number] [facility]
[2017-03-28] MEDS: OMEPRAZOLE CAP 20 MG CAP PO SCH (21:00)
[2017-03-28] MEDS: SIMVASTATIN 20 MG TAB PO SCH (21:00)
[2017-03-29] MEDS: AMPICILLIN INJ 2GM 2 GM in SODIUM CHL 0.9% 100ML MINI-BAG 100 ML IVPB SCH ×3 (00:11→13:11)
[2017-03-29] MEDS ORDERED: SODIUM CHL 0.9% 100ML MINI-BAG 100 ML IVPB ONE (05:18)
[2017-03-29] MEDS ORDERED: AMPICILLIN SODIUM INJ 2 GM VIAL ONE (05:18)
[2017-03-29] MEDS: PANTOPRAZOLE SODIUM TAB 40 MG PO SCH (06:19)
[2017-03-29] MEDS: ISOSORBIDE MONONITRATE (IMDUR) 30 MG TAB PO SCH (08:21)
[2017-03-29] MEDS: ESCITALOPRAM 10 MG TAB PO SCH (08:21)
[2017-03-29] MEDS: CELECOXIB 100 MG CAP PO SCH (08:21)
[2017-03-29] MEDS: NON-FORMULARY MEDICATION 1 EA MIS (Mirabegron [Myrbetriq] 25 MG) PO SCH (08:23)
[2017-03-29] MEDS: SODIUM CHLORIDE 0.9% (FLUSH) 10 ML SYG IV SCH (08:24)
[2017-03-29] MEDS: MEMANTINE HCL DONEPEZIL HCL PO SCH (08:24)
[2017-03-29] MEDS ORDERED: BIFIDOBACTERIUM INFANTIS 4 MG CAP PO SCH (09:00)
[2017-03-29 10:19] VITALS: BP 148/81; TEMP 98.1; O2SAT 99
[2017-03-30] MEDS ORDERED: NON-FORMULARY MEDICATION 1 EA MIS (Memantine Hcl-Donepezil Hcl [Namzaric 28-10 Mg] 1 CAP) PO SCH (09:00)
--- NOTE | 2017-04-09 10:17 | DS ---
SUPERVISING PHYSICIAN: Kiran Reddy MD DISCHARGE DIAGNOSIS: 1. Hypercalcemia retuning to near normal limits after IV fluids. 2. Delirium secondary to hyperglycemia, improved. 3. Severe dehydration showing improvement with IV fluids. 4. urinary tract infection with enterococcus faecalis infection treated with amoxicillin. 5. Hypocoagulable state with INR currently not on Coumadin awaiting return to baseline therapeutic levels. 6. Anorexia. 7. Generalized weakness. 8. Elevated bilirubin. 9. Cholelithiasis. 10. Hypoalbuminemia. 11. Thrombocytopenia. 12. Acute renal failure showing worsening. 13. Ultrasound evidence of possible cirrhosis. REASON FOR HOSPITALIZATION: Mr. Lo is an 86 year-old male patient who presented to the Emergency Room on date of admission with neurological deficits and multiple falls. He progressively weakened and had progressive confusion, progressing over the last month or two. He had been started on Megace previously for anorexia. He has been having more frequent falls in the last couple of weeks, has had skin tears on his right upper arm. He moves all extremities well. He did appear to be cathartic. His son noted that he has not been taking oral fluids very well in the past several days prior to admission, He has had no syncopal or near syncopal episodes. The son reported that the medications have been taken regularly without any problems. He also denied that he had been throwing up, had no diarrhea. He stated he had no history of cancers and states that he has been on dementia medications for the last few months. He is unsure about how long all this has been going on other than a few months. Severity was noted to be moderate. Nothing seems to improve his symptomatology and nothing seems to make it worse. Other symptoms associated are loss of appetite, malaise and weakness. He was evaluated in the Emergency Room by Dr. Lawrence Reddy MD. He noted that he was afebrile and vital signs were stable. As noted on the panel his calcium level was quite elevated but his blood count was normal. WBCs were 8,400, hemoglobin 54, hematocrit 45.9 , platelet count 124,000, sodium 145, potassium low at 3.5, chloride 103, carbon dioxide 34, BUN 23, creatinine 1.141 and glucose 114. Calcium 12.5. After one liter of fluid, the calcium had come down to 11.1. Bilirubin was 1.6 , AST 35, ALT 15, alkaline phosphatase 49, CK 100, CKMB 3.4, troponin 0.03. His urine was noted to be yellow, slightly cloudy. He was admitted to the hospital for hypercalcemia, delirium, hypercoagulable state, anorexia and generalized weakness. LABORATORY STUDIES: Initial white count 8,400, he did show a maximum white count of 16,100 and prior to discharge it had gone down to 9,600. Hemoglobin 13.8, hematocrit 40.9 hematocrit. Platelet count was low at 97,000 but had shown improvement from 88,000 on the previous day prior to admission. His differential did continue to show a left shift. Coagulation studies showed initial PTT with a 45.5, INR 3.9. Prior to discharge his PTT was 55.7, INR 5.0. Chemistries on admission showed a sodium of 145, potassium 3.5, BUN 22, creatinine 1.4, calcium initially 12.5 with ionized calcium of 6.5. Magnesium 2.3, total bilirubin 1.6. Liver functions showed to be within normal limits. Troponin 0.03. Prealbumin was 11. Amylase and lipase were all within normal limits. PSA was 1.97, TSH 2.04. After initiation of treatment and prior to discharge his sodium had normalized at 145, potassium 3.5, BUN down to 31, creatinine 2.17. Calcium had gone down to 10.9, total bilirubin 1.3. Liver functions did show a slight elevation and on discharge his AST was 48, ALT 24, and alkaline phosphatase of 35. Urinalysis on admission showed trace of intact blood with a small amount of leukoesterase. RBCs on microscopic showed 1 to 3, 10 to 20 WBCs, 1 to 3 epithelials and 3+ bacteria. On the , additional urinalysis showed that he had continued blood and white cells and bacteria decreased to 1+. His urine drug screen was negative for all substances tested. MICROBIOLOGY: He had Enterococcus faecalis in his urine, final culture showing sensitive to ampicillin. Reculture prior to discharge on the after being on antibiotics showed that he had no growth at 48 hours. RADIOLOGY: He had multiple radiographic studies completed. He initially had a CT of the head on admission to the Emergency Room and per radiology interpretation showed no acute cortical infarction or hemorrhage with substance changes noted. He had a forearm x-ray of the right forearm and showed no osseous abnormalities per radiology interpretation. Chest x-ray in the Emergency Department per radiology interpretation showed no acute pulmonary processes. He had an abdominal/pelvic CT with IV contrast and per radiology interpretation showed chest with no acute pulmonary process. There was noted two separate 6 mm noncalcified pulmonary nodules in the right middle lobe. Abdomen/pelvis, there was cholelithiasis with slight hydropic appearance of the gallbladder, moderate to large amount of stool in the colon and nonobstructive stones in the kidneys. Please see that full report for full details. CT of the chest showed evidence of mild central lobular emphysema of the lungs and again, noted was well circumscribed noncalcified pulmonary nodules in the right middle lobe and abut the right minor fissure, these measure up to 6 mm. He had an ultrasound of the gallbladder and per radiology interpretation there was note of cholelithiasis without any ultrasound evidence of acute cholecystitis or obvious biliary tract obstruction. There was likely sludge also seen within the gallbladder with a small amount of ascites around the liver, a somewhat nodular appearance to the liver capsule with heterogenous echoicity of the liver suggesting possible cirrhosis. He had an additional CT of the head on and per radiology interpretation showed no CT evidence of intracranial hemorrhage, mass effect or large territory infarction with moderate generalized volume loss with moderate patchy supratentorial white matter hypodensity. There was no abnormal extraaxial fluid collection. There was note of senescent changes per radiology interpretation. Please see full report for details. EKG in the Emergency Department showed a paced rhythm. HOSPITAL COURSE: Mr. Lo was admitted as noted per history of present illness for confusion, hypercalcemia. He was started on fluids, he did respond well to treatment as well as it was noted he had a urinary tract infection and started on ampicillin high-dose. On the date of discharge he had shown improvement in his mentation and was felt well enough to be discharged to continue with outpatient treatment plan. He had bay accepted to [facility], therefore he will be transferred back and admitted there at discharge. PLAN: Mr. Lo was discharged to [facility]. He is to have close clinical followup with Dr. Burns and resume his home medications at discharge. He is to have physical therapy for evaluation and treatment and return to the hospital for any concerning symptoms. New medications at discharge include Amoxicillin 1000 mg twice a day for 10 days. Align 4 mg daily for 10 days. All other medications as per previous to hospitalization. Diet at discharge is regular normal diet as tolerated. Activity as per physical therapy. Condition on discharge was stable and improved. #[id number] [facility]
== END 2017-03-29 13:30 | DRG 641 ==
LOC: ER 06:18 → UNDOADMIN 10:35 → MS 10:35
PROVIDERS: ADMIT Nurse Practitioner Family; ATTEND Nurse Practitioner Family
PROC: BW25YZZ Computerized Tomography (CT Scan) of Chest, Abdomen and Pelvis using Other Contrast (ICD-10-PCS; principal; 2017-03-25)
DX: E83.52 Hypercalcemia (principal); R64 Cachexia; F05 Delirium due to known physiological condition; N39.0 Urinary tract infection, site not specified; N17.9 Acute kidney failure, unspecified; Z68.1 Body mass index [BMI] 19.9 or less, adult; R53.1 Weakness; R29.6 Repeated falls; R79.1 Abnormal coagulation profile; E78.5 Hyperlipidemia, unspecified; I25.10 Atherosclerotic heart disease of native coronary artery without angina pectoris; K57.30 Diverticulosis of large intestine without perforation or abscess without bleeding; R63.0 Anorexia; B95.2 Enterococcus as the cause of diseases classified elsewhere; E80.6 Other disorders of bilirubin metabolism; D69.6 Thrombocytopenia, unspecified; N18.9 Chronic kidney disease, unspecified; K59.00 Constipation, unspecified; I12.9 Hypertensive chronic kidney disease with stage 1 through stage 4 chronic kidney disease, or unspecified chronic kidney disease; H91.90 Unspecified hearing loss, unspecified ear; F03.90 Unspecified dementia, unspecified severity, without behavioral disturbance, psychotic disturbance, mood disturbance, and anxiety; E86.0 Dehydration; Z79.01 Long term (current) use of anticoagulants; I25.2 Old myocardial infarction; Z87.891 Personal history of nicotine dependence; Z79.899 Other long term (current) drug therapy; Z95.5 Presence of coronary angioplasty implant and graft; Z95.0 Presence of cardiac pacemaker; Z79.1 Long term (current) use of non-steroidal anti-inflammatories (NSAID); Z90.49 Acquired absence of other specified parts of digestive tract

== ENCOUNTER → 2017-03-30 | Outpatient (CLI) | payer MEDICARE | END | disposition home or self-care (01) | LOC: GT 07:08 | PROVIDERS: ATTEND Family Medicine | DX: I48.91 Unspecified atrial fibrillation (principal) | CPT/HCPCS: 36415; 85610; P9603 ==

== ENCOUNTER 2017-04-04 13:17 | Inpatient (IN) | payer MEDICARE ==
--- NOTE | 2017-04-04 13:43 | ED.PDOC ---
History of Present Illness - General Chief Complaint: General Stated Complaint: weakness Time Seen by Provider: 04/04/17 13:36 Source: patient, Vital Signs reviewed, EMS notes reviewed, family, [place] [facility] records Additional Information: Patient's grand-daughter and son at bedside. They are concerned for poor care at [facility]. Patient with some mild visible dehydration. - History of Present Illness Timing/Duration: unsure Severity: moderate Improving Factors: nothing Worsening Factors: nothing Associated Symptoms: denies symptoms Allergies/Adverse Reactions: Allergies NO KNOWN ALLERGY Allergy (Verified 04/04/17 14:05) Home Medications: Ambulatory Orders Omeprazole 20 mg PO BEDTIME 07/27/15 Isosorbide Mononitrate [Imdur] 30 mg PO DAILY 08/31/15 Celecoxib 200 mg PO DAILY 07/06/16 Simvastatin 20 mg PO BEDTIME 07/06/16 Nitroglycerin 0.4 mg Tab [Nitrostat] 1 ea SL Q5MIN PRN #1 bttl 07/07/16 Escitalopram [Lexapro] 10 mg PO DAILY 03/25/17 Memantine HCl-Donepezil HCl [Namzaric 28-10 mg] 1 cap PO DAILY 03/25/17 Mirabegron [Myrbetriq] 25 mg PO DAILY 03/25/17 Amoxicillin [Amoxil] 1,000 mg PO BID 10 Days cap 03/29/17 Bifidobacterium Infantis [Align] 4 mg PO DAILY cap 03/29/17 Warfarin Sodium [Coumadin] 2 mg PO DAILY #30 tab 03/29/17 Review of Systems - Review of Systems Unable to Obtain Due To: dementia Past Medical History (General) - Patient Medical History Hx Seizures: No Hx Stroke: No Hx Dementia: No Hx Asthma: No Hx of COPD: No Hx Cardiac Disorders: Yes - ID's, Atrial Fib Hx Congestive Heart Failure: No Hx Pacemaker: Yes Hx Hypertension: No Hx Thyroid Disease: No Hx Diabetes: No Hx Gastroesophageal Reflux: No Hx Renal Disease: Yes - Hx kidney stones 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) Hx of HIV: No Hx Hepatitis C: No Hx MRSA: No - Vaccination History Hx Tetanus, Diphtheria Vaccination: No Hx Influenza Vaccination: Yes - 2017 Hx Pneumococcal Vaccination: Yes - Social History Hx Tobacco Use: Yes - Quit 1965 Hx Alcohol Use: No Hx Substance Use: No Hx Substance Use Treatment: No Hx Depression: No Hx Physical Abuse: No Hx Emotional Abuse: No Hx Suspected Abuse: No - Female History Patient : No Family Medical History - Family History Mother Family History: Unknown Living Status: Cause of : stroke Hx Family Asthma: No Hx Family Congestive Heart Failure: No Hx Family Hypertension: No Hx Family Stroke: Yes Hx Cardiac Disease: No Hx Family Diabetes: No Hx Family Cancer: No Physical Exam - Physical Exam General Appearance: Frail, No apparent distress - ,mild dehydration with some dry oral mucus membranes Eye Exam: bilateral normal Ears, Nose, Throat: hearing grossly normal, normal ENT inspection Neck: full range of motion, supple Respiratory: no respiratory distress, no accessory muscle use Cardiovascular/Chest: regular rate, rhythm Gastrointestinal/Abdominal: non tender, soft Extremity: normal range of motion, non-tender, normal inspection Neurologic: disoriented x 3 Progress - Progress Progress: 04/04/17 19:01 Grand daughter - Krupa - [phone] Son (Power of Dermatology Sales Representative) - Torin Lo - [phone] Patient stable for admission. Family is looking into new NH placement. - Results/Orders Results/Orders: 04/04/17 18:58 ED Intent to Admit Routine Laboratory Results - last 24 hr 04/04/17 04/04/17 04/04/17 13:52 13:52 14:19 WBC 23.8 H* RBC 3.86 L Hgb 12.1 L Hct 36.3 L MCV 94.3 H MCH 31.3 H MCHC 33.4 RDW 13.7 Plt Count 113 L MPV 8.1 Absolute Neuts (auto) Not Reportable Absolute Lymphs (auto) Not Reportable Absolute Monos (auto) Not Reportable Absolute Eos (auto) Not Reportable Neutrophils % Not Reportable Neutrophils % (Manual) 78.0 Lymphocytes % Not Reportable Lymphocytes % (Manual) 4.0 Monocytes % Not Reportable Monocytes % (Manual) 4.0 Eosinophils % Not Reportable Basophils % Not Reportable Band Neutrophils 14.0 Platelet Estimate Decreased Normal RBC Morphology Normal rbc morph PT INR PTT (SP) Sodium 142 Potassium 3.4 L Chloride 106 Carbon Dioxide 24 Anion Gap 15.4 BUN 72 H Creatinine 3.10 H BUN/Creatinine Ratio 23.2 H Random Glucose 102 Serum Osmolality 304.5 H Calcium 12.0 H Total Bilirubin 1.7 H AST 23 ALT 20 Alkaline Phosphatase 45 Creatine Kinase CK-MB (CK-2) CK-MB (CK-2) % Troponin I Serum Total Protein 5.9 L Albumin 3.0 L Globulin 2.9 Albumin/Globulin Ratio 1.0 L Urine Color Yellow Urine Appearance Clear Urine pH 5.5 Ur Specific [place] 1.015 Urine Protein Negative Urine Glucose (UA) Negative Urine Ketones Negative Urine Blood Small H Urine Nitrite Negative Urine Bilirubin Negative Urine Urobilinogen 0.2 Ur Leukocyte Esterase Negative Urine RBC 5-10 H Urine WBC 0 Ur Epithelial Cells 0 Urine Bacteria 0 04/04/17 04/04/17 16:34 17:05 WBC RBC Hgb Hct MCV MCH MCHC RDW Plt Count MPV Absolute Neuts (auto) Absolute Lymphs (auto) Absolute Monos (auto) Absolute Eos (auto) Neutrophils % Neutrophils % (Manual) Lymphocytes % Lymphocytes % (Manual) Monocytes % Monocytes % (Manual) Eosinophils % Basophils % Band Neutrophils Platelet Estimate Normal RBC Morphology PT 12.3 INR 1.090 PTT (SP) 31.1 Sodium Potassium Chloride Carbon Dioxide Anion Gap BUN Creatinine BUN/Creatinine Ratio Random Glucose Serum Osmolality Calcium Total Bilirubin AST ALT Alkaline Phosphatase Creatine Kinase 36 L CK-MB (CK-2) 2.3 CK-MB (CK-2) % Not Reportable Troponin I 0.05 Serum Total Protein Albumin Globulin Albumin/Globulin Ratio Urine Color Urine Appearance Urine pH Ur Specific [place] Urine Protein Urine Glucose (UA) Urine Ketones Urine Blood Urine Nitrite Urine Bilirubin Urine Urobilinogen Ur Leukocyte Esterase Urine RBC Urine WBC Ur Epithelial Cells Urine Bacteria 04/04/17 04/04/17 04/04/17 13:53 15:00 16:00 Temperature 97.8 F Pulse Rate [ 94 H 80 69 pulse ox] Respiratory 20 20 18 Rate Blood Pressure 97/63 134/61 118/74 [Right Arm] O2 Sat by Pulse 98 95 98 Oximetry 04/04/17 04/04/17 17:00 18:13 Temperature Pulse Rate [ 68 75 pulse ox] Respiratory 20 20 Rate Blood Pressure 115/60 125/64 [Right Arm] O2 Sat by Pulse 97 97 Oximetry Departure - Departure Clinical Impression: Dehydration, Frailty Time of Disposition: 19:15 Disposition: Admit Patient Condition: Fair Departure Forms: ED Discharge - Pt. Copy, Patient Portal Self Enrollment Referrals: Krzysztof Burns MD [Primary Care Provider] - 1-2 Weeks Home Medications: Ambulatory Orders Omeprazole 20 mg PO BEDTIME 07/27/15 Isosorbide Mononitrate [Imdur] 30 mg PO DAILY 08/31/15 Celecoxib 200 mg PO DAILY 07/06/16 Simvastatin 20 mg PO BEDTIME 07/06/16 Nitroglycerin 0.4 mg Tab [Nitrostat] 1 ea SL Q5MIN PRN #1 bttl 07/07/16 Escitalopram [Lexapro] 10 mg PO DAILY 03/25/17 Memantine HCl-Donepezil HCl [Namzaric 28-10 mg] 1 cap PO DAILY 03/25/17 Mirabegron [Myrbetriq] 25 mg PO DAILY 03/25/17 Amoxicillin [Amoxil] 1,000 mg PO BID 10 Days cap 03/29/17 Bifidobacterium Infantis [Align] 4 mg PO DAILY cap 03/29/17 Warfarin Sodium [Coumadin] 2 mg PO DAILY #30 tab 03/29/17 Decision To Admit - Decistion To Admit Decision to Admit Reason: Medical Nature Decision to Admit Date: 04/04/17 Decision to Admit Time: 16:58
[2017-04-04] MEDS ORDERED: SODIUM CHLORIDE 0.9% 1000ML 1,000 ML IVS ONE (14:58)
--- NOTE | 2017-04-04 17:46 | RAD ---
EXAM DESCRIPTION: Chest,1 View CLINICAL HISTORY: weakness COMPARISON: 03/25/2017 FINDINGS: Cardiac silhouette is within normal limits. There is mild atelectasis at the medial right lung base with no other focal parenchymal or pleural disease. Visualized osseous structures are within normal limits. IMPRESSION: No evidence of acute cardiopulmonary disease. Electronically signed by: Kade Quispe 04/04/2017 5:44 PM SELF PROPELLED MINING MACHINE OPERATOR
--- NOTE | 2017-04-04 19:03 | HP ---
SUPERVISING PHYSICIAN: Krzysztof Burns MD CHIEF COMPLAINT: Increasing weakness. HISTORY OF PRESENT ILLNESS: Mr. Lo is a resident of [facility]. He was brought to the Emergency Room today by EMS after his granddaughter and son noted that the patient was showing to be dehydrated and hand ongoing increasing weakness. In the Emergency Room, initial workup included a CBC that showed he had a severe leukocytosis of 23,800 with a left shift and increased bands. His coagulation levels were within normal limits although he is supposed to be on Coumadin according to his history. Chemistries showed just some mild hypokalemia with 3.4 potassium. BUN 72, creatinine 3.1. Serum osmolality 304. Calcium level was noted to be elevated at 12. Bilirubin slightly elevated at 1.7. Liver functions were within normal limits. Lactic acid was normal at 1.6. Cardiac enzymes showed low CK at 36 with troponin 0.05. Urinalysis showed a small amount of blood with 5 to 10 RBCs , otherwise within normal limits. Also of note, the patient has a history of recently being admitted for hypercalcemia. Initial radiographic studies completed in the Emergency Department included a chest x-ray and per radiologic interpretation there was no evidence of acute cardiopulmonary disease. After admission to the Medical/Surgical Floor, it was noted that he was having some abdominal discomfort diffusely, a CT of the abdomen and pelvis was obtained and per radiologic interpretation there was note of extensive soft tissue stranding of the mesentery suggestive of an infection or inflammatory edema process. It was noted there was no bowel obstruction. Also of note on CT was atelectasis and consolidation involving the left lung. PAST MEDICAL HISTORY: 1. Nephrolithiasis. 2. Atrial fibrillation with implanted pacemaker. 3. Hyperlipidemia. 4. Coronary artery disease with 6 cardiac stents. 5. History of myocardial infarction in the past. 6. Diverticulosis with recurrent diverticulitis and partial colectomy in 2011. PAST SURGICAL HISTORY: 1. Left colectomy by Dr. Wall in 2011 secondary to diverticulitis. 2. Coronary artery disease with coronary stents times 6 in 2008. HOME MEDICATIONS: Please see updated list of medications. At time of admission , medications listed included: 1. Coumadin 2 mg daily. 2. Simvastatin 20 mg at bedtime. 3. Omeprazole 20 mg daily. 4. Myrbetriq 25 mg daily. 5. Namzaric 28-10 mg 1 capsule daily. 6. Imdur 30 mg daily. 7. Lexapro 10 mg daily. 8. Celebrex 200 mg daily. 9. Align 4 mg daily. 10. Amoxicillin 1000 mg b.i.d. ALLERGIES: NO KNOWN DRUG ALLERGIES. FAMILY HISTORY: Positive for cerebrovascular accident. SOCIAL HISTORY: The patient has been , lives in [place]. He was a previous smoker, but quit in the . Denies any recent smoking and admits to drinking 1 beer a day before bedtime. Denies any illicit drug use. This all per past medical history. REVIEW OF SYSTEMS: Difficult to obtain secondary the patient's lethargic presentation. PHYSICAL EXAMINATION: VITAL SIGNS: Initial temperature 97.8. Pulse 94. Blood pressure initially 97/ 60. Respirations 20. Saturation 98% on room air. Admission weight 48.8 kg, which is down from previous admission on 03/25/17 which was listed as 51.0 kg. GENERAL: On examination on admission to Medical/Surgical Floor, the patient was resting comfortably in bed. He was minimally responsive to questions, but was awake and appeared to be comfortable. He does look dehydrated and malnourished. He was very cachectic in appearance. HEENT: Tympanic membranes bilaterally occluded with cerumen. Oral mucosa is severely dry with no lesions. NECK: Supple, nontender with full range of motion. No jugular venous distention noted. CHEST: Lung sounds were diminished towards the bases with no obvious rhonchi or rales. CARDIOVASCULAR: Regular rate and rhythm without any appreciable murmurs, gallops, or rubs. ABDOMEN: Distended and tender diffusely. Positive bowel sounds. EXTREMITIES: There is no cyanosis, clubbing or edema. LABORATORY: CBC showed 23,800 white count, hemoglobin 12.1, hematocrit 36.3, platelet count 113,000. Differential did show a left shift with increased bands. Coagulation studies showed normal PT and PT-T although he is supposed to be on Coumadin. His electrolytes showed a mildly decreased potassium of 3.4. Otherwise, sodium and chloride were within normal limits. BUN was elevated at 72, creatinine 3.1. Glucose 102, calcium elevated at 12 with serum osmolality of 304. Total bilirubin 1.7, albumin low at 3.0. Amylase and lipase were both normal. Lactic acid was normal at 1.6. Ammonia level was normal at 31. Cardiac enzymes showed troponin 0.05. EKG pending at time of admission. RADIOLOGY: Initial chest x-ray in the Emergency Department per radiologic interpretation showed no evidence of acute cardiopulmonary disease. CT of the abdomen and pelvis without contrast per radiologic interpretation showed a moderate left pleural effusion with atelectasis or consolidation involving the dependent lung with extensive tissue stranding of the mesentery. There was also note of moderate enlargement of the renal pelvis, calcified gallstones or gallbladder lumen with no evidence of gallbladder wall thickening or pericholecystic fluid. There was fluid surrounding the left renal Gerota's fascia. Heart was mildly enlarged. Florence catheter was noted to be in place in the bladder. There was no mention of bowel obstruction. Please see that report for full details. ASSESSMENT: 1. Weakness and delirium likely secondary to underlying hypocalcemia which appears to be a chronic issue, more likely related to his underlying renal dysfunction exacerbated by sever dehydration. 2. Hypercalcemia with initial calcium level of 12.0, unknown etiology, possibly secondary to worsening renal function abd dehydration. 3. Severe dehydration, possibly resulting in elevated calcium levels. 4. Diffuse abdominal pain secondary to mesenteric inflammation, etiology uncertain with concerns for ischemic bowel. 5. Urinary retention as noted with Florence placement after admission, possibly contributing to some of his abdominal pain with no evaluation of underlying urinary tract infection. He does have a recent history of being treated for an enterococcus faecalis infection with amoxicillin. 6. History of atrial fibrillation with a pacemaker on chronic warfarin, showing nontherapeutic INR. 7. Severe leukocytosis with a left shift and increased bands, likely secondary to developing infectious process related to possible ischemic bowel versus underlying healthcare acquired pneumonia. He does reside at [facility]. 8. Concerns for early pneumonia as noted on radiographic studies with elevated leukocytosis requiring initiation of antibiotics with, again, concerns for healthcare acquired pneumonia. 9. Malnutrition and anorexia. 10. Severe renal insufficiency, likely chronic and exacerbated by underlying prerenal azotemia and dehydration. PLAN: The patient will be admitted to the Medical/Surgical Floor for further evaluation and treatment. In regard to the concern for mesenteric inflammation and infection and ischemic bowel, we will plan to start him on some antibiotics initially tonight to include Rocephin and have a consultation with Dr. Wall in regard to further treatment and management. We will start him on azithromycin as well with concerns for developing pneumonia. We will have him on aggressive bronchial hygiene therapy. We will start him on DVT prophylaxis with Lovenox and further need to investigate whether or not he has actually been on Coumadin or taken off since his last admission. We will collect stool studies to include stool leukocytes. We will have him on IV fluids of D5W with 20 of potassium running at 125 in effort to correct his volume status and recheck his calcium levels in the morning. We will estimate his length of stay to be 2 to 3 days until clinically stable. We will continue to monitor the patient closely and treat appropriately. It was mentioned by the family to the Emergency Room physician that the family does not wish for the patient to go back to [facility]. Therefore, we need to work with Tax Associate Attorney, Alma, to further assess discharge planning in efforts to get the patient discharged to the appropriate facility per family's wishes. Given the patient's advanced age and underlying comorbidities and current acute findings related to the possible ischemic bowel and early sepsis, we certainly need to talk to the family in regards to the patient's resuscitation status as his prognosis is poor given the multiple comorbidities and current findings. We will also get a consultation with Dr. Wall in the morning to further help manage the underlying abdominal pains. Dr. Manuel was available for consultation. #[id number] [facility]
[2017-04-04] MEDS ORDERED: ACETAMINOPHEN 325 MG TAB PO PRN (19:34)
[2017-04-04] MEDS ORDERED: DEXTROSE 5% 1000ML 1,000 ML IVS PRN (19:46)
[2017-04-04] MEDS ORDERED: DEXTROSE 5% 1000ML 1,000 ML IVS ONE (20:56)
[2017-04-04] MEDS ORDERED: HALOPERIDOL LACTATE INJ 5 MG/ML VIAL IM ONE (20:57)
[2017-04-04] MEDS: IV SET AND CAP CHANGE INJ INJ SCH (21:16)
[2017-04-04] MEDS: OSELTAMIVIR 75 MG CAP PO ONE ×2 (21:16→21:59)
--- NOTE | 2017-04-04 22:18 | CT ---
EXAM DESCRIPTION: Abdoment/Pelvis w/o Contrast CLINICAL HISTORY: diffuse abdominal pain COMPARISON: 03/25/2017 TECHNIQUE: Contiguous axial images of the abdomen and pelvis were obtained followed by reconstruction images. This exam was performed according to our departmental dose-optimization program, which includes automated exposure control, adjustment of the mA and/or kV according to patient size and/or use of iterative reconstruction technique. FINDINGS: There is a moderate left pleural effusion. Atelectasis and consolidation involving the dependent left lung. There is extensive soft tissue stranding of the mesentery. There is moderate enlargement of each renal pelvis. Calcified gallstones are in the gallbladder lumen with no evidence of gallbladder wall thickening or pericholecystic fluid. There is fluid surrounding the left renal Gerota's faschia. Patient motion limits detail. Heart is mildly enlarged. There is gas in the urinary bladder, along with a Florence catheter. Aorta is quite tortuous. Patient motion limits detail. There is no bowel obstruction. IMPRESSION: Findings suggest mesenteric infection/inflammation/edema, worsened since the prior exam. Left pleural effusion and consolidation, new since the prior exam. See additional findings above. Electronically signed by: Kade Quispe 04/04/2017 10:17 PM OVEN EQUIPMENT REPAIRER
[2017-04-04] MEDS ORDERED: SODIUM CHL 0.9% 100ML MINI-BAG 100 ML IVPB ONE (23:15)
[2017-04-04] MEDS ORDERED: AZITHROMYCIN IV 500 MG VIAL IVPB ONE (23:18)
[2017-04-04] MEDS ORDERED: SODIUM CHLORIDE 0.9% 250ML 250 ML ONE (23:18)
[2017-04-04] MEDS: KCL 20MEQ/D5W 1,000 ML IVS PRN (23:19)
[2017-04-04] MEDS: cefTRIAXone SODIUM 2 GM in SODIUM CHL 0.9% 100ML MINI-BAG 100 ML IVPB SCH (23:22)
[2017-04-04] MEDS ORDERED: AZITHROMYCIN IV 500 MG in SODIUM CHLORIDE 0.9% 250ML 250 ML IVPB SCH (23:30)
[2017-04-05] MEDS ORDERED: SODIUM CHLORIDE 0.9% 250ML 250 ML ONE ×2 (00:29→19:37)
[2017-04-05] MEDS ORDERED: AZITHROMYCIN IV 500 MG VIAL IVPB ONE ×2 (00:30→19:38)
--- NOTE | 2017-04-05 00:32 | PCM.CORE ---
Physician DVT/VTE - Nurse DVT Assessment & Total Each Risk Factor Represents 3 Points: Age over 75 years Each Risk Factor Represents 2 Points: Confined to bed >72 hours Each Risk Factor Represents 1 Point: Medical PT at Bed Rest DVT Assessment Score: 6 - 3-4 High Risk Treatments: Early Ambulation *, Sequential Compression Device Pharmacological: Enoxaparin 40 mg SQ Daily
[2017-04-05] MEDS: PANTOPRAZOLE SODIUM IV 40 MG VIAL IV SCH (06:31)
--- NOTE | 2017-04-05 07:51 | RAD ---
Portable chest INDICATION: Pneumonia COMPARISON: April 04 IMPRESSION: Stable dual-lead pacemaker. Stable heart size. Slightly increased consolidation/atelectasis medial left lung base and probable small left pleural effusion. Infiltrate is not excludable in the left base. No pneumothorax identified. Patient is rotated slightly. Right lung appears clear. Electronically signed by: Julio Cesar Daugherty MD 04/05/2017 7:50 AM GAME PROTECTOR
[2017-04-05] MEDS ORDERED: ENOXAPARIN SODIUM 30 MG/0.3 ML SYG SUBCU ONE (08:03)
[2017-04-05] MEDS ORDERED: POTASSIUM CHLORIDE 20 MEQ TAB PO ONE (08:36)
[2017-04-05] MEDS ORDERED: LEVALBUTEROL NEBS 1.25 MG/3 ML VIAL NEB ONE (08:37)
[2017-04-05] MEDS ORDERED: OMEPRAZOLE CAP 20 MG CAP PO SCH (09:00)
[2017-04-05] MEDS: ISOSORBIDE MONONITRATE (IMDUR) 30 MG TAB PO SCH (09:24)
[2017-04-05] MEDS: ESCITALOPRAM 10 MG TAB PO SCH (09:24)
[2017-04-05] MEDS: BIFIDOBACTERIUM INFANTIS 4 MG CAP PO SCH (09:24)
[2017-04-05] MEDS: NON-FORMULARY MEDICATION 1 EA MIS (Mirabegron [Myrbetriq] 25 MG) PO SCH (09:24)
[2017-04-05] MEDS: NON-FORMULARY MEDICATION 1 EA MIS (Memantine Hcl-Donepezil Hcl [Namzaric 28-10 Mg] 1 CAP) PO SCH (09:24)
[2017-04-05] MEDS: AMOXICILLIN 500 MG CAP PO SCH ×2 (09:24→21:25)
[2017-04-05] MEDS ORDERED: ENOXAPARIN SODIUM 30 MG/0.3 ML SYG SUBCU SCH (10:00)
--- NOTE | 2017-04-05 10:29 | RAD ---
EXAM DESCRIPTION: Abdomen, 2 views CLINICAL HISTORY: Abdomen pain FINDINGS/ IMPRESSION: Scattered large and small intestinal bowel gas without radiographic evidence of bowel obstruction, pneumatosis or free intraperitoneal air No organomegaly or obvious abdominal mass lesion Retrocardiac left lower lobe opacity compatible with atelectasis or early infiltrate. Mild cardiomegaly. Cardiac pacemaker. Electronically signed by: Kiran Marie MD 04/05/2017 10:28 AM FLATBED OWNER OPERATOR
[2017-04-05] MEDS: KCL 20MEQ/D5W 1,000 ML IVS PRN ×2 (11:13→18:15)
--- NOTE | 2017-04-05 11:55 | CONS ---
DATE OF CONSULTATION: 04/05/17 REFERRING PHYSICIAN: Hospitalist Service, Darrin Stark NP, and Vinod Manuel MD HISTORY OF PRESENT ILLNESS: The patient is an 87-year-old male who was admitted from [facility] and the Emergency Room for weakness and was found to be dehydrated. In the Emergency Room, he also had a white count of 23,000, elevated creatinine of 3.1, BUN 72, potassium 3.4. Calcium level was 12. Bilirubin 1.7, CK 36, troponin 0.05. Urinalysis showed RBCs 5 to 10, but no white cells, no bacteria. The patient was recently admitted previously for hypercalcemia. He was found to have abdominal discomfort which improved after the placement of a Florence catheter. Prior to that, his bladder was percussed up to at least the umbilicus. At this point, a CT scan was obtained which reveals an inflammatory process in the mesentery which was stated to be worse than previously. There was no free air or obstruction noticed. There was fluid especially around Gerota's fascia on the left. PAST MEDICAL HISTORY: 1. Nephrolithiasis. 2. Atrial fibrillation with pacemaker. 3. Hyperlipidemia. 4. Hypercalcemia. 5. Coronary artery disease status post stenting. 6. History of myocardial infarction. 7. History of diverticulitis and colectomy in 2011. PAST SURGICAL HISTORY: ADMISSION MEDICATIONS: 1. Coumadin. 2. Simvastatin. 3. Omeprazole. 4. Myrbetriq. 5. Namzaric. 6. Imdur. 7. Lexapro. 8. Celebrex. 9. Align. 10. Amoxicillin. ALLERGIES: NO KNOWN DRUG ALLERGIES. FAMILY HISTORY: Positive for cerebrovascular accident. SOCIAL HISTORY: He lives in a correction. He smoked until the 1960s. He has a beer daily. There is no history of drug use. This is all obtained from the history. REVIEW OF SYSTEMS: Not obtained. The patient is awake, but does not respond to questions. PHYSICAL EXAMINATION: VITAL SIGNS: The patient is currently afebrile, normotensive. HEENT: Face is cachectic with sunken eyes. Mucous membranes somewhat moist. NECK: Without adenopathy. BACK: Without CVA tenderness. CHEST: Decreased breath sounds in the left base. ABDOMEN: Appears to be nontender. Bowel sounds are positive. RECTAL: Deferred. LABORATORY: Repeat laboratory examination today reveals white count down to 18, 900 with hemoglobin down to 11.8, 91% neutrophils compared to 78% yesterday. There are no bands and there were 14 bands yesterday. Chemistries reveal potassium down to 3, creatinine down to 1.63, BUN down to 43, calcium down to 11.7. Today's x-rays are consistent with left lower lobe consolidation with no free air or obstruction on the abdominal films. IMPRESSION/RECOMMENDATION: This is an 87-year-old anorexic man who is currently refusing his medications and does not appear to be in any acute distress. The patient is known to me and since his colon surgery five years ago , he is much less active and vigorous and although appears to be awake, he refuses to answer significant questions. I have to believe that he possibly is refusing treatment by not eating and taking his medicines and should be discussed with his family. If, in fact, they decide against hospice or DNR, would consider repeat CT scan with contrast since creatinine is improved versus MRI of the abdomen versus ultrasound to examine the organs for vascular issues. Would continue to treat him as pneumonia from the antibiotic point of view. I will follow this patient with you and be willing to talk to the family if need be. #[id number] [facility]TD[facility]
[2017-04-05] MEDS: MORPHINE SULFATE INJ 10 MG/ML VIAL IV PRN (18:08)
[2017-04-05] MEDS ORDERED: SIMVASTATIN 20 MG TAB ONE (19:38)
[2017-04-05] MEDS ORDERED: SODIUM CHL 0.9% 100ML MINI-BAG 100 ML IVPB ONE (19:38)
--- NOTE | 2017-04-05 20:46 | PN ---
DATE: 04/05/17 SUPERVISING PHYSICIAN: Krzysztof Burns M.D. SUBJECTIVE: The patient remains confused. He is refusing to take any oral nutrition or water. He has remained afebrile and hemodynamically stable. I did discuss with one of his sons considerations for hospice consultation. He is in agreement with this and at this point we have consulted with [facility], however, the Power of [employer] Supervisor, the other son, is currently in [facility]. The son here has informed us that he will contact his brother in [facility] and will set up a conference call with both hospice care and the care team here to decide further care required for Mr. Lo as he is continuing to show ongoing decline. Last night on initial exam it was noted that he was having abdominal pain and a Florence was placed with concerns for urinary retention after which time they were able to place a Florence and had immediate return of almost 1400 mL of urine. The patient appears to be more comfortable and is no longer showing any signs of pain and no longer having abdominal distention. OBJECTIVE: VITAL SIGNS: Temperature 98.1, pulse 78, blood pressure 117/64, respirations 12, satting 95% on room air. I's and O's show a positive balance of 2129 with 3329 in, 1200 out. Weight is 47.1 kg. CHEST: Lungs are fairly clear, just diminished towards the bases with very faint rhonchi heard on the lateral posterior aspect but no obvious wheezing. HEART: Regular rate and rhythm. ABDOMEN: Soft, non-tender with positive bowel sounds. EXTREMITIES: No clubbing, cyanosis or edema. NEUROLOGIC: He remains lethargic and confused. He moves all extremities ad nikita and will follow some basic commands, but does not verbalize to any extent. LABORATORY: White count actually is down today at 18,900 compared to 23,800 on admission. Hemoglobin 11.8, hematocrit 35.3, platelet count8 98,000. CBC shows continued left shift and no bands today. Coagulation studies today showed INR of 5.42 with PT of 60.2. Chemistries show hypokalemia with potassium 3.0, BUN 43, creatinine 1.63 with calcium 11.7. MICROBIOLOGY: Blood cultures remain negative. Sputum culture is still pending. RADIOLOGY: Chest x-ray this morning per radiology interpretation showed a stable dual lead pacer with a stable heart size, slightly increased consolidation/atelectasis in the medial left lung base and probable small left pleural effusion. Infiltrate is not excluded from the left base. No pneumothorax identified. The right lung appears to be fairly clear. Abdominal x-ray two view series per radiology interpretation shows scattered large and small intestinal bowel gas without radiographic evidence of bowel obstruction, pneumatosis or free intraperitoneal air. There are no organomegaly or obvious abnormal mass lesions. Retrocardiac left lower lobe opacity compatible with early infiltrate, mild cardiomegaly and a cardiac pacemaker. ASSESSMENT: 1. Weakness and delirium likely secondary to underlying hypercalcemia which appears to be a chronic issue, more likely related to his underlying renal dysfunction exacerbated by severe dehydration. 2. Hypercalcemia with initial calcium level of 12.0, uncertain etiology, although possibly related again as noted to his worsening renal function and exacerbated by his dehydration. 3. Severe dehydration. 4. Diffuse abdominal pain secondary to distended bladder and some mesenteric mesenteric inflammatory changes as noted on CT with uncertain etiology. 5. Urinary retention with possible bladder outlet obstruction requiring Florence placement showing well over a liter of urine on placement with relief of his abdominal pain possibly contributing to his worsening renal function and some hydronephrosis noted on the left side. 6. History of atrial fibrillation with a pacemaker implantation on Warfarin showing a supratherapeutic level on his INR. 7. Severe leukocytosis with a left shift and increased bands, likely secondary to developing infectious process possibly a left lower lobe pneumonia versus early ischemic bowel with pneumonia being healthcare acquired with no other infectious etiologies noted. It is of note that he does reside at [facility]. 8. Concerns for early pneumonia as noted on radiographic studies with elevated leukocytosis requiring initiation of antibiotics with, again, concerns for healthcare acquired pneumonia with the patient having been treated recently to an Influenza exposure at the [facility] with Tamiflu. 9. Malnutrition and anorexia. 10. Renal insufficiency, worsening from previous labs, although showing some improvement after fluids felt to be chronic and some exacerbation from underlying prerenal azotemia, dehydration and also the urinary retention. PLAN: I consulted with Dr. Wall in regards to the CT findings. I did discuss with the family that was present, his son and granddaughters, the discussion that needs to be raised in regards to his code status as well as possible hospice consultation. They are all in agreement to making him a no code and possibly doing hospice, however it should be noted that the Power of [employer] Supervisor is his other son that has resided in [place], but however he is currently on vacation at [facility]. His son has been contacted in efforts to secure a meeting tomorrow between hospice and medical staff in discharge planning efforts. In regards to his fluid status, will continue with D5W and potassium in efforts to help again decrease his calcium levels. He is not taking any significant oral intake. Again we are trying to encourage this as well as he is not taking any of his oral medications. In regards to the elevated Coumadin level, will recheck in the morning and hold his Coumadin until it is therapeutic. At this point, he is not showing any bleeding and is non- ambulatory. The family has made arrangements for the patient to go to [facility] after he leaves on discharge from previous residence at [facility]. Will anticipate his discharge within the next 1 to 2 days, hopefully if he clinically is showing to be stable, again with considerations for discharging to hospice or actually starting hospice inpatient care prior to discharge. Until that consultation is completed, will continue to monitor the patient closely and treat appropriately. Await final decision as far as discharge planning. Until discharge, will continue to monitor and treat appropriately. Dr. Manuel was available for consultation. #[id number] [facility]
[2017-04-05] MEDS: SIMVASTATIN 20 MG TAB PO SCH (21:25)
[2017-04-05] MEDS: cefTRIAXone SODIUM 2 GM in SODIUM CHL 0.9% 100ML MINI-BAG 100 ML IVPB SCH (23:42)
[2017-04-06] MEDS: AZITHROMYCIN IV 500 MG in SODIUM CHLORIDE 0.9% 250ML 250 ML IVPB SCH (01:12)
[2017-04-06] MEDS: KCL 20MEQ/D5W 1,000 ML IVS PRN ×2 (06:01→23:19)
[2017-04-06] MEDS: PANTOPRAZOLE SODIUM IV 40 MG VIAL IV SCH (06:11)
[2017-04-06] MEDS: SODIUM CHLORIDE 0.9% (FLUSH) 10 ML SYG IV PRN (06:11)
[2017-04-06] MEDS ORDERED: KCL 40 MEQ/WATER FOR INJECTION 40 MEQ in PREMIX BAG 1 BAG IVPB ONE (08:28)
[2017-04-06] MEDS ORDERED: KCL 40 MEQ/WATER FOR INJECTION 100 ML IVPB ONE (08:39)
[2017-04-06] MEDS: AMOXICILLIN 500 MG CAP PO SCH ×2 (08:45→21:49)
[2017-04-06] MEDS: BIFIDOBACTERIUM INFANTIS 4 MG CAP PO SCH (08:46)
[2017-04-06] MEDS: ISOSORBIDE MONONITRATE (IMDUR) 30 MG TAB PO SCH (08:46)
[2017-04-06] MEDS: ESCITALOPRAM 10 MG TAB PO SCH (08:46)
[2017-04-06] MEDS: NON-FORMULARY MEDICATION 1 EA MIS (Mirabegron [Myrbetriq] 25 MG) PO SCH (08:48)
[2017-04-06] MEDS: NON-FORMULARY MEDICATION 1 EA MIS (Memantine Hcl-Donepezil Hcl [Namzaric 28-10 Mg] 1 CAP) PO SCH (08:48)
[2017-04-06] MEDS: MORPHINE SULFATE INJ 10 MG/ML VIAL IV PRN (10:40)
--- NOTE | 2017-04-06 19:12 | PN ---
DATE: 04/06/17 SUPERVISING PHYSICIAN: Krzysztof Burns M.D. SUBJECTIVE: The patient continues to be confused. He continues to refuse to eat any significant amount of nutrition or drink water. He does respond to his family with basic questions. I did discuss with the family today his code status and they agreed to making him a DNR. We have also started a consultation with hospice care initially with [facility], however the patient's family changed their mind and has gone to [facility]. He has not had any recurrence of abdominal pain. He remains without a fever and remains comfortable. OBJECTIVE: VITAL SIGNS: temperature 98.9 with pulse 76, blood pressure 105/63, respirations 16, satting 96% on room air. I's and O's show a positive balance of 2039 with 4629 in, 2550 out. Weight is 48.2 kg. CHEST: Lung sounds are fairly clear today but still diminished towards the bases. No obvious rhonchi or wheezing is noted. HEART: Regular rate and rhythm. ABDOMEN: Soft, non- tender. Positive bowel sounds. EXTREMITIES: No clubbing, cyanosis or edema. NEUROLOGIC: He remains lethargic and confused but continues to move all extremities ad nikita and is doing busy action with his hands and does follow some basic commands. LABORATORY: White count is down to 11,600 with hemoglobin 11.4, hematocrit 34.4 , platelet count 110,000. Differential shows a continued left shift but improving. Chemistries show a persistent hypokalemia with potassium 2.9, BUN 18 , creatinine 0.76. Serum osmolality is down to 285. Calcium remains elevated at 11.6. Liver functions show to be within normal limits and albumin is 2.5. MICROBIOLOGY: Blood cultures remain negative at 24 hours. He has not yet produced a sputum culture. RADIOLOGY: No additional radiographic studies were completed today. ASSESSMENT: 1. Weakness and terminal delirium likely secondary to underlying chronic hypercalcemia exacerbated by severe dehydration. 2. Hypercalcemia felt to be chronic with initial calcium level of 12.0 showing some improvement with fluids felt to be secondary to his decrease in renal function. 3. Severe dehydration showing improvement with IV fluids. 4. Abdominal pains initially on admission secondary to distended bladder with some mesenteric inflammatory changes as noted on CT, uncertain etiology with the patient now having no signs of abdominal pains and showing good clinical improvement. 5. Urinary retention possibly related to bladder outlet obstruction requiring Florence placement with the patient no longer having any abdominal pains and dramatic improvement in his renal function. 6. History of atrial fibrillation with a pacemaker implantation on Warfarin showing near therapeutic levels. Will continue to hold. 7. Severe leukocytosis with a left shift initially with increased bands, secondary to infectious process, possibly a left lower lobe pneumonia versus ischemic bowel with pneumonia being healthcare acquired but no other infectious etiologies noted. 8. Concerns for early pneumonia as noted on radiographic studies with elevated leukocytosis requiring initiation of antibiotics with, again, concerns for healthcare acquired pneumonia with the patient having been treated recently for an Influenza exposure at [facility] and having completed a course of Tamiflu. 9. Malnutrition and anorexia. 10. Renal insufficiency acutely worsening secondary to underlying dehydration showing good improvement, also possibly secondary to his chronic urinary retention with again creatinine returning to near normal status after initiation of IV fluids to alleviate the prerenal azotemia and correct his volume status. PLAN: The patient's family has discussed hospice care. They talked to hospice this morning from [facility]. After that lengthy discussion, the family decided to make the patient a DNR and continue with current treatment. If the patient does well and can be discharged at that time, then he can be placed on hospice care at [facility]. Again, the patient's family requested that he transfer from [facility] to [facility]. This has been completed and he has been accepted, awaiting discharge. Will continue to monitor his calcium levels, magnesium levels and correct as necessary. I will go ahead and start him on some thiamine with anticipation of being severely malnourished. Possible considerations for thiamine deficiency. I have encouraged his family to interact with him and to keep him redirected to hopefully decrease the level of confusion. Will anticipate an additional 24 to 48 hours with anticipation of maybe discharging to [facility] over the weekend. Until then, will continue to monitor and treat appropriately. Dr. Manuel was available for consultation. #[id number] [facility]
[2017-04-06] MEDS ORDERED: THIAMINE HCL 100 MG TAB PO ONE (19:29)
[2017-04-06] MEDS: THIAMINE HCL INJ 100 MG/ML VIAL IV SCH (19:34)
[2017-04-06] MEDS: SIMVASTATIN 20 MG TAB PO SCH (21:49)
[2017-04-06] MEDS ORDERED: SODIUM CHL 0.9% 100ML MINI-BAG 100 ML IVPB ONE (23:12)
[2017-04-06] MEDS: cefTRIAXone SODIUM 2 GM in SODIUM CHL 0.9% 100ML MINI-BAG 100 ML IVPB SCH (23:20)
[2017-04-07] MEDS ORDERED: SODIUM CHLORIDE 0.9% 250ML 250 ML ONE ×2 (01:29→23:01)
[2017-04-07] MEDS ORDERED: AZITHROMYCIN IV 500 MG VIAL IVPB ONE ×2 (01:29→23:01)
[2017-04-07] MEDS: AZITHROMYCIN IV 500 MG in SODIUM CHLORIDE 0.9% 250ML 250 ML IVPB SCH (01:35)
[2017-04-07] MEDS: PANTOPRAZOLE SODIUM IV 40 MG VIAL IV SCH (06:24)
[2017-04-07] MEDS: THIAMINE HCL INJ 100 MG/ML VIAL IV SCH (10:01)
--- NOTE | 2017-04-07 17:03 | PN ---
DATE: 04/07/17 SUBJECTIVE: The patient is lying on his left side poorly responsive and not eating. He is not able to respond to verbal stimuli and is not actively moving extremities at this time. He has been unable to consume any beverages or calories over the last couple of days. The significance of this and the fact that his family has now made him a do not resuscitate has necessitated the call of hospice for potential care and comfort. The son has taken some items of his belongings to a room at [facility]. [facility] has also accepted him on their service and further negotiations and planning are in effect now for [facility] by tomorrow. OBJECTIVE: See vitals. GENERAL: The patient is poorly responsive. Not eating or drinking at significant aspiration risk. He is placed at oral care and hygiene only and stopped his oral pills which were not being taken anyway. He will continue on the antibiotics at this time. ASSESSMENT: 1. Weakness and terminal delirium likely secondary to underlying chronic hypercalcemia exacerbated by severe dehydration. 2. Hypercalcemia felt to be chronic with initial calcium level of 12.0 showing some improvement with fluids felt to be secondary to his decrease in renal function. 3. Severe dehydration showing improvement with IV fluids. 4. Abdominal pains initially on admission secondary to distended bladder with some mesenteric inflammatory changes as noted on CT, uncertain etiology with the patient now having no signs of abdominal pains and showing good clinical improvement. 5. Urinary retention possibly related to bladder outlet obstruction requiring Florence placement with the patient no longer having any abdominal pains and dramatic improvement in his renal function. 6. History of atrial fibrillation with a pacemaker implantation on Warfarin showing near therapeutic levels. Will continue to hold. 7. Severe leukocytosis with a left shift initially with increased bands, secondary to infectious process, possibly a left lower lobe pneumonia versus ischemic bowel with pneumonia being healthcare acquired but no other infectious etiologies noted. 8. Concerns for early pneumonia as noted on radiographic studies with elevated leukocytosis requiring initiation of antibiotics with, again, concerns for healthcare acquired pneumonia with the patient having been treated recently for an Influenza exposure at [facility] and having completed a course of Tamiflu. 9. Malnutrition and anorexia. 10. Renal insufficiency acutely worsening secondary to underlying dehydration showing good improvement, also possibly secondary to his chronic urinary retention with again creatinine returning to near normal status after initiation of IV fluids to alleviate the prerenal azotemia and correct his volume status. PLAN: The patient has been accepted by [facility] at [facility] with plans being made now by family and administrations of the [facility] for potential transfer tomorrow. The patient is still unable to eat or drink and is in a near terminal state. Condition discussed with the son. Placed on oral hygiene and oral medications stopped. Close observation and support as indicated with IV fluids continuing. Reevaluate in the morning. [facility][id number] [facility]
[2017-04-07] MEDS: KCL 20MEQ/D5W 1,000 ML IVS PRN (17:41)
[2017-04-07] MEDS: IV SET AND CAP CHANGE INJ INJ SCH (20:00)
[2017-04-07] MEDS ORDERED: SODIUM CHL 0.9% 100ML MINI-BAG 100 ML IVPB ONE (23:01)
[2017-04-07] MEDS: SODIUM CHLORIDE 0.9% (FLUSH) 10 ML SYG IV PRN (23:09)
[2017-04-07] MEDS: cefTRIAXone SODIUM 2 GM in SODIUM CHL 0.9% 100ML MINI-BAG 100 ML IVPB SCH (23:10)
[2017-04-07] MEDS: BIFIDOBACTERIUM INFANTIS 4 MG CAP PO SCH (23:32)
[2017-04-07] MEDS: AMOXICILLIN 500 MG CAP PO SCH (23:33)
[2017-04-07] MEDS: ISOSORBIDE MONONITRATE (IMDUR) 30 MG TAB PO SCH (23:34)
[2017-04-07] MEDS: NON-FORMULARY MEDICATION 1 EA MIS (Memantine Hcl-Donepezil Hcl [Namzaric 28-10 Mg] 1 CAP) PO SCH (23:34)
[2017-04-07] MEDS: ESCITALOPRAM 10 MG TAB PO SCH (23:34)
[2017-04-07] MEDS: NON-FORMULARY MEDICATION 1 EA MIS (Mirabegron [Myrbetriq] 25 MG) PO SCH (23:34)
[2017-04-08] MEDS: SODIUM CHLORIDE 0.9% (FLUSH) 10 ML SYG IV PRN ×3 (01:06→19:32)
[2017-04-08] MEDS: AZITHROMYCIN IV 500 MG in SODIUM CHLORIDE 0.9% 250ML 250 ML IVPB SCH (01:07)
[2017-04-08] MEDS: KCL 20MEQ/D5W 1,000 ML IVS PRN ×3 (05:22→21:42)
[2017-04-08] MEDS: PANTOPRAZOLE SODIUM IV 40 MG VIAL IV SCH (06:05)
[2017-04-08] MEDS: THIAMINE HCL INJ 100 MG/ML VIAL IV SCH (09:45)
--- NOTE | 2017-04-08 12:24 | PN ---
DATE: 04/08/17 SUBJECTIVE: The son is present in the room and patient's condition is discussed with him. The patient is still being rolled from [id number] in an effort to try to help minimize any progression of the significant deep sacral ulceration noted. His general coloration is nor improving. He is not responsive to stimulation or to verbal questioning. He is not eating or drinking any fluids at this time and none are being offered because of his inability to swallow. Anticipate hospice care and comfort as soon as [facility] is able to participate with his ongoing care. Eventual placement either into a half-way facility at [facility] or to remain in the hospital under hospice care and comfort is to be determined by later today. OBJECTIVE: GENERAL: The patient's condition has deteriorated with failure to improve and not able to eat or drink. The patient is generally unresponsive and is in a near terminal condition. ASSESSMENT: 1. Weakness and terminal delirium likely secondary to underlying chronic hypercalcemia exacerbated by severe dehydration. 2. Hypercalcemia felt to be chronic with initial calcium level of 12.0 showing some improvement with fluids felt to be secondary to his decrease in renal function. 3. Severe dehydration showing improvement with IV fluids. 4. Abdominal pains initially on admission secondary to distended bladder with some mesenteric inflammatory changes as noted on CT, uncertain etiology with the patient now having no signs of abdominal pains and showing good clinical improvement. 5. Urinary retention possibly related to bladder outlet obstruction requiring Florence placement with the patient no longer having any abdominal pains and dramatic improvement in his renal function. 6. History of atrial fibrillation with a pacemaker implantation on Warfarin showing near therapeutic levels. Will continue to hold. 7. Severe leukocytosis with a left shift initially with increased bands, secondary to infectious process, possibly a left lower lobe pneumonia versus ischemic bowel with pneumonia being healthcare acquired but no other infectious etiologies noted. 8. Concerns for early pneumonia as noted on radiographic studies with elevated leukocytosis requiring initiation of antibiotics with, again, concerns for healthcare acquired pneumonia with the patient having been treated recently for an Influenza exposure at [facility] and having completed a course of Tamiflu. 9. Malnutrition and anorexia. 10. Renal insufficiency acutely worsening secondary to underlying dehydration showing good improvement, also possibly secondary to his chronic urinary retention with again creatinine returning to near normal status after initiation of IV fluids to alleviate the prerenal azotemia and correct his volume status. PLAN: Continue supportive care and await decision by hospice regarding their ability to continue with ongoing care and comfort. Special attention to support the patient and the family during this significant time with the patient 's serious condition being noted. #[id number] [facility]
[2017-04-08] MEDS ORDERED: SODIUM CHL 0.9% 100ML MINI-BAG 100 ML IVPB ONE (19:17)
[2017-04-08] MEDS ORDERED: SODIUM CHLORIDE 0.9% 250ML 250 ML ONE (19:17)
[2017-04-08] MEDS ORDERED: AZITHROMYCIN IV 500 MG VIAL IVPB ONE (19:18)
[2017-04-08] MEDS: MORPHINE SULFATE INJ 10 MG/ML VIAL IV PRN (19:33)
[2017-04-08] MEDS: cefTRIAXone SODIUM 2 GM in SODIUM CHL 0.9% 100ML MINI-BAG 100 ML IVPB SCH (23:54)
[2017-04-09] MEDS: SODIUM CHLORIDE 0.9% (FLUSH) 10 ML SYG IV PRN ×2 (01:20→06:14)
[2017-04-09] MEDS: AZITHROMYCIN IV 500 MG in SODIUM CHLORIDE 0.9% 250ML 250 ML IVPB SCH (01:20)
[2017-04-09] MEDS: PANTOPRAZOLE SODIUM IV 40 MG VIAL IV SCH (06:15)
[2017-04-09] MEDS: THIAMINE HCL INJ 100 MG/ML VIAL IV SCH (08:33)
[2017-04-09] MEDS: MORPHINE SULFATE INJ 10 MG/ML VIAL IV PRN ×2 (10:14→19:26)
[2017-04-09] MEDS: KCL 20MEQ/D5W 1,000 ML IVS PRN (10:22)
[2017-04-09] MEDS ORDERED: KCL 20MEQ/WATER FOR INJ 100ML 20 MEQ in PREMIX BAG 1 BAG IVPB ONE (12:19)
[2017-04-09] MEDS ORDERED: KCL 20MEQ/WATER FOR INJ 100ML 100 ML IVPB ONE (13:09)
[2017-04-09] MEDS: KCL 40MEQ/NS 1,000 ML IVS PRN (13:32)
--- NOTE | 2017-04-09 15:48 | PN ---
DATE: 04/09/17 SUBJECTIVE: The patient has made an astounding improvement and is able to look around and talk and communicate concisely. He is eating his food and is even asking for more. Up until yesterday, he was scheduled for hospice care and comfort because he was unable to swallow or take any medications or food for approximately 5 or 6 days. Eventually, it was planned to send him to [facility] where he will now be able to get some rehabilitation and get strong enough to be able to continue with his more normal activity. Significant encephalopathy is noted showing some significant improvement. Still with some serious electrolyte imbalance and recheck of his calcium shows 10.4 which is much closer to normal than the 12 that he had on admission. The patient's is able to come here today for the first time because of inclement weather for the last 3 or 4 days. The son is also present. The son has been very helpful in his ongoing care. We have still not heard back from [facility] or has there been a final determination of acceptance from [facility]. OBJECTIVE: VITAL SIGNS: Afebrile. Blood pressure 159/81, pulse oximetry 99% on room air. Respirations 14. GENERAL: The patient is beginning to eat and is able to swallow without aspiration. LUNGS have some diminished breath sounds. HEART tones are regular. ABDOMEN is soft. He is complaining of pain in his ankles even though there is no tenderness or swelling. He is also complaining of knee pain on a chronic basis on the right which apparently is chronic osteoarthritis. LABORATORY: Potassium is down to 2.6 requiring supplementation on a urgent basis. Glucose 106, kidney function is normal. Osmolality is 263, calcium is down to 10.4. Albumin is low at 2.2. Stool cultures negative. There was some fecal leukocytes present. Blood cultures are negative and flu test has been negative for AB flu. Repeat chest x-ray in the morning. This is to followup on the left lower lobe infiltrative process. The patient has now completed 5 days of Rocephin and azithromycin for an underlying pneumonia process. His urinalysis upon admission was clean except for some hematuria. History of recurrent urinary tract infections i the past. ASSESSMENT: 1. Significant altered loss of consciousness with a near comatose state with the patient being unable to eat, drink, take pain medications or respond to stimuli, noted to be getting worse for the last four days. This was completely improved as of today. The patient is still very weak and unable to ambulate or get out of bed but will require some strengthening and rehabilitation in the process. 2. Heart of significant recurrent hypercalcemia possibly related to chronic renal dysfunction versus documented elevated parathormone levels suggesting a possible parathyroid adenoma. 3. Severe dehydration improved with IV fluids. 4. Chronic pains especially in the right knee and left ankle with degenerative changes present. 5. Abdominal pain now improved with a distended bladder and mesenteric inflammatory changes on CT scan of undetermined etiology yet with steady improvement. 6. Acute urinary retention probably related to a bladder outlet obstruction with Florence placed and improvement of his ongoing renal dysfunction. 7. History of atrial fibrillation with a pacemaker implantation on Coumadin excessive INR levels. 8. Severe leukocytosis showing some improvement. 9. Chest x-ray findings suggesting a left lower lobe pneumonia with repeat evaluation tomorrow and close followup suggested. History of influenza in the recent past receiving a course of Tamiflu. 10. Significant malnutrition with improved appetite requiring an extended of time to hopefully reverse.. 11. Chronic renal insufficiency, worsened, showing some improvement with hydration. PLAN: His condition is discussed with the family. They also are amazed at his significant improvement which we trust will be able to continue. His potassium is being supplemented with a K Vito as well as supplementation with reevaluation in the morning of potassium and calcium levels. AP chest x-ray will be determined and tomorrow will be his 6th day of Rocephin and completely azithromycin course as well. Anticipate further rehabilitation at [facility] with their physical therapy department. The family has requested and the patient has been accepted by [facility]. The patient will be Medicaid pending as he enters into the residential. Close followup with Dr. Burns is important as his many nutritional physical disabilities are being approached. #[id number] [facility]
[2017-04-09] MEDS: POTASSIUM CHLORIDE 10 MEQ TAB PO SCH (17:35)
[2017-04-09] MEDS ORDERED: SODIUM CHL 0.9% 50ML MIN-BAG+ 50 ML IVPB ONE (20:17)
[2017-04-09] MEDS ORDERED: cefTRIAXone SODIUM 1 GM VIAL ONE (20:17)
[2017-04-09] MEDS: cefTRIAXone SODIUM 1 GM in SODIUM CHL 0.9% 50ML MIN-BAG+ 50 ML IVPB SCH (20:25)
[2017-04-10] MEDS: SODIUM CHLORIDE 0.9% (FLUSH) 10 ML SYG IV PRN (00:08)
[2017-04-10] MEDS: MORPHINE SULFATE INJ 10 MG/ML VIAL IV PRN ×3 (00:09→15:23)
[2017-04-10] MEDS: KCL 40MEQ/NS 1,000 ML IVS PRN (06:03)
[2017-04-10] MEDS ORDERED: PANTOPRAZOLE SODIUM TAB 40 MG PO SCH (06:30)
--- NOTE | 2017-04-10 07:07 | RAD ---
EXAM: Single view chest. INDICATION: Pneumonia. COMPARISON: Chest x-ray: 04/05/2017. FINDINGS: There is a retrocardiac airspace opacity. The heart is at the upper limit of normal in size with a left chest wall pacemaker in place. There is no pneumothorax or pleural effusion. The bones are demineralized. IMPRESSION: Retrocardiac airspace opacity Electronically signed by: Hood Navas MD 04/10/2017 7:06 AM [employer] Workstation: [id number]
[2017-04-10] MEDS ORDERED: cefTRIAXone SODIUM 1 GM VIAL ONE (07:19)
[2017-04-10] MEDS ORDERED: SODIUM CHL 0.9% 50ML MIN-BAG+ 50 ML IVPB ONE (07:19)
[2017-04-10] MEDS: POTASSIUM CHLORIDE 10 MEQ TAB PO SCH ×3 (07:49→17:15)
[2017-04-10] MEDS: cefTRIAXone SODIUM 1 GM in SODIUM CHL 0.9% 50ML MIN-BAG+ 50 ML IVPB SCH (07:49)
[2017-04-10 13:38] VITALS: BP 113/60; TEMP 98.1; O2SAT 92
--- NOTE | 2017-04-10 15:15 | PN ---
SUPERVISING PHYSICIAN: Krzysztof Burns MD DATE: 04/10/17 SUBJECTIVE: The patient is lying in bed asleep. He awakens easily, but he does not answer any questions. There is no family at the bedside. Per nursing staff , he has had no issues overnight. OBJECTIVE: VITAL SIGNS: Afebrile. Heart rate 84. Blood pressure 113/60. Respiratory rate 14. O2 saturation 92% on room air. LUNGS: Essentially clear to auscultation bilaterally except diminished at the bases. CARDIAC: Regular rate and rhythm. GASTROINTESTINAL: Abdomen is soft, nondistended, nontender. The patient is very cachectic. NEUROLOGIC: He awakens easily, but is lethargic and does not answer questions. LABORATORY: WBC 13.9 with stable hemoglobin and hematocrit of 9.8 and 29.4. Sodium 136, potassium 3.7, chloride 106, carbon dioxide 28, anion gap 5.7, BUN 11, creatinine 0.75. Glucose 106, serum osmolality 271.8, calcium 10.8. His third stool for occult blood is positive. All his preliminary cultures showed no growth. His chest x-ray per radiologic interpretation shows retrocardiac space opacity. All other labs and films have been reviewed via the EMR. ASSESSMENT: 1. Significant altered loss of consciousness with a near comatose state with the patient being unable to eat, drink, take pain medications or respond to stimuli, noted to be getting worse for the last four days. This was completely improved as of today. The patient is still very weak and unable to ambulate or get out of bed but will require some strengthening and rehabilitation in the process. 2. Significant recurrent hypercalcemia possibly related to chronic renal dysfunction versus documented elevated parathormone levels suggesting a possible parathyroid adenoma. 3. Severe dehydration improved with IV fluids. 4. Chronic pains especially in the right knee and left ankle with degenerative changes present. 5. Abdominal pain now improved with a distended bladder and mesenteric inflammatory changes on CT scan of undetermined etiology yet with steady improvement. 6. Acute urinary retention probably related to a bladder outlet obstruction with Florence placed and improvement of his ongoing renal dysfunction. 7. History of atrial fibrillation with a pacemaker implantation on Coumadin excessive INR levels. 8. Severe leukocytosis showing some improvement. 9. Chest x-ray findings suggesting a left lower lobe pneumonia with repeat evaluation tomorrow and close followup suggested. History of influenza in the recent past receiving a course of Tamiflu. 10. Significant malnutrition with improved appetite requiring an extended of time to hopefully reverse.. 11. Chronic renal insufficiency, worsened, showing some improvement with hydration. PLAN: We will continue present supportive care. At this point, his family is discussing with [facility] his discharge to their facility on hospice. At this point, I will not repeat his labs in the morning and hopefully we can get him discharged to [facility] tomorrow. His prognosis is very poor as he is not eating and he is having a very difficult time communicating. He is to have [facility] on discharge. We will continue to monitor the patient closely and follow as needed. Dr. Burns is the collaborating physician and available for consultation. #[id number] [facility]
--- NOTE | 2017-04-11 09:28 | DS ---
SUPERVISING PHYSICIAN: Krzysztof Burns MD DISCHARGE DIAGNOSIS: 1. Significant loss of consciousness with near comatose state with the patient being unable to eat, drink, take pain medications or respond to stimuli on admission and noted to be getting worse over the last four days prior to admission. The patient was very weak and unable to ambulate or get out of bed. 2. Significant recurrent hypercalcemia, possibly related to chronic renal dysfunction versus documented elevated parathyroid hormone levels, suggesting a possible parathyroid adenoma. 3. Severe dehydration, improved with IV fluids. 4. Chronic pain, especially in the right knee and left ankle with degenerative changes present. 5. Abdominal pain on admission with a distended bladder, improved with Florence catheter placement. 6. Acute urinary retention, most likely related to bladder outlet dysfunction. Florence catheter was placed and that has improved. 7. History fo atrial fibrillation with pacemaker implantation on Coumadin with supratherapeutic INR levels. 8. Severe leukocytosis, improved. 9. Chest x-ray findings suggesting a left lower lobe pneumonia. He did have influenza in the past and has recently been treated with Tamiflu. 10. Significant malnutrition and cachexia with poor appetite. 11. Chronic renal insufficiency that has worsened, but showed some slight improvement since admission with hydration. HISTORY OF PRESENT ILLNESS: This is an 87-year-old male patient who was originally admitted to the hospital on 04/04/17 from [facility]. The patient was initially dehydrated and had ongoing weakness. His CBC in the Emergency Room showed he had severe leukocytosis of 23,800 with a left shift and increased bands. Chemistries showed some hypokalemia with potassium 3.4, BUN 72, creatinine 3.1. Calcium was elevated at 12, bilirubin was elevated at 1.7. His liver functions were within normal limits. Lactic acid was normal. The patient had just been recently admitted to the hospital for hypercalcemia. He also had a CT of the abdomen and pelvis done that per radiologic interpretation showed an extensive soft tissue stranding at the mesentery suggestive of infection or inflammatory disease process. There was no bowel obstruction and there was atelectasis and consolidation involving the left lung. The patient was admitted to the hospital. HOSPITAL COURSE: His electrolytes were normalized with the exception that his calcium has continued to be elevated, although it improved down to 10.4. He did have three positive stools for occult blood. WBC initially were 23,800 and are now 13,900 with a hemoglobin and hematocrit that have stabilized at 9.8 and 29.4. His warfarin continued to be held and although his INR was as high as 5.4 , it is now normalized to 3.38 and 2.3 without any supplementation. He was started on Rocephin and given that over his hospital course. His family realizes that his prognosis is poor and they would like him to be discharged to [facility] and to have [facility]. DISCHARGE PLAN: The patient will be discharged to [facility] today. He will be placed on [facility]. He is to resume his previous medications except for the warfarin. I have also added some cefdinir for 7 additional days. His medications can be changed as hospice sees to fit. He is to have a followup with his primary care physician, Dr. Krzysztof Burns, in the next one to two weeks. The family is to call Dr. Burns' office or return to the hospital for any further problems or complications. DISCHARGE MEDICATIONS: 1. Omeprazole. 2. Imdur. 3. Celebrex. 4. Simvastatin. 5. Namzaric. 6. Lexapro. 7. Myrbetriq. 8. Align. 9. Cefdinir. #[id number] [facility]
== END 2017-04-10 17:00 | disposition hospice, inpatient (51) | DRG 640 ==
LOC: ER 13:17 → MS 19:01 → OBSVTOIN 19:01
PROVIDERS: ADMIT Nurse Practitioner Family; ATTEND Nurse Practitioner Acute Care
DX: E83.52 Hypercalcemia (principal); J18.9 Pneumonia, unspecified organism; G93.40 Encephalopathy, unspecified; E46 Unspecified protein-calorie malnutrition; F05 Delirium due to known physiological condition; E86.0 Dehydration; E87.6 Hypokalemia; K52.9 Noninfective gastroenteritis and colitis, unspecified; I48.91 Unspecified atrial fibrillation; R33.9 Retention of urine, unspecified; N18.9 Chronic kidney disease, unspecified; D64.9 Anemia, unspecified; Y95 Nosocomial condition; G89.29 Other chronic pain; M25.561 Pain in right knee; M25.572 Pain in left ankle and joints of left foot; N32.0 Bladder-neck obstruction; Z51.5 Encounter for palliative care; Z66 Do not resuscitate; Z79.01 Long term (current) use of anticoagulants; Z95.0 Presence of cardiac pacemaker

== ENCOUNTER → 2017-04-04 | Outpatient (CLI) | payer MEDICARE | END | disposition home or self-care (01) | LOC: GT 06:31 | PROVIDERS: ATTEND Family Medicine | DX: D68.9 Coagulation defect, unspecified (principal) | CPT/HCPCS: 36415; 85610; P9603 ==